=== PATIENT | female | born 1950 | race Caucasian/White ===

== ENCOUNTER 2020-08-26 09:13 | Inpatient (IN) | payer MEDICARE, SELFPAY ==
[2020-08-26] VITALS (11 sets, daily range): BP systolic 95–137; BP diastolic 37–74; PULSE 69–82; RESP 15–20; TEMP 36.1–36.6; O2SAT 93–100; BMI 24.3
--- NOTE | ~2020-08-26 | XR_ITS ---
EXAMINATION: XR chest 1V portable DATE: 08/26/2020 11:03 INDICATION: Cough. Disorientation. TECHNIQUE: A single frontal view of the chest was obtained on 2 radiographs. COMPARISON: CT abdomen and pelvis 08/26/2020 FINDINGS: There are faint patchy airspace opacities in all lung zones bilaterally. No pleural effusio n or pneumothorax. The heart size is normal. Median sternotomy wires and mediastinal surgical clips a re seen, likely from prior coronary artery bypass grafting. IMPRESSION: 1. Multifocal lung disease, likely atypical pneumonia such as COVID-19 pneumonia. Reviewed, dictated and finalized at location A. IMPRESSION: 1. Multifocal lung disease, likely atypical pneumonia such as COVID-19 pneumoni a.
--- NOTE | ~2020-08-26 | CT_ITS ---
EXAMINATION: CT abdomen pelvis wo con DATE: 08/26/2020 10:10 INDICATION: Abdominal pain. Diarrhea. TECHNIQUE: Computed tomography (CT) of the abdomen and pelvis was performed without intravenous contr ast. Automated exposure control and iterative reconstruction technique were employed. The dose-length product was 378.41 mGy-cm. COMPARISON: None. FINDINGS: The visualized portions of the lung bases demonstrate patchy peripheral ground glass opacit ies. There is mild atelectasis bilaterally. No pleural effusion. The heart size is normal. There are coronary artery calcifications. No pericardial effusion. The liver is normal. There are gallstones in the gallbladder, which is normal in size. Calcifications in the spleen are consistent with old granu lomatous disease. There is mild splenomegaly measuring 14.0 cm. The adrenal glands are normal. There are simple cysts and hemorrhagic cysts in the kidneys measuring up to 3.4 cm on the right. There are masses in the kidneys measuring soft tissue attenuation measuring up to 1.9 cm on the left. There are vascular calcifications at the jacob of the kidneys. There is no urolithiasis. There are fibroids in uterus. There is diverticulosis of the colon without evidence of diverticulitis. There are no dilated loops of bowel. The appendix is normal. There are no pathologically enlarged lymph nodes. There is n o free intraperitoneal fluid. There is moderate lumbar spondylosis. There is a hemangioma in T9 verte bral body. IMPRESSION: 1. Patchy groundglass opacities in the lungs suspicious for atypical pneumonia such as COVID-19 pneum onia. 2. Mild splenomegaly. 3. Cholelithiasis. 4. Indeterminate kidney masses measuring up to 1.9 cm on the left, which may be hemorrhagic cysts or less likely solid neoplasm(s). Abdomen CT without and with contrast is recommended. Reviewed, dictated and finalized at location A. IMPRESSION: 1. Patchy groundglass opacities in the lungs suspicious for atypical pneumonia such as COVID-19 pneumonia. 2. Mild splenomegaly. 3. Cholelithiasis. 4. Indeterminate kidney masses measuring up to 1.9 cm on the left, which may be hemorrhagic cysts or less likely solid neoplasm(s). Abdomen CT without and wit h contrast is recommended.
[2020-08-26 09:47] LABS: Basophils Percent Auto 0.2 % (0.2-1.2); Hematocrit 31.1 % (37.0-47.0); Hemoglobin 10.5 g/dL (12.0-15.0); Immature Granulocyte Absolute 0.02 K/mm3 (0.00-0.031); Immature Granulocyte Percent A 0.4 % (0-0.5); Lymphocytes Absolute Auto 1.63 K/mm3 (0.9-3.2); Lymphocytes Percent Auto 30.2 % (18.3-44.2); Mean Corpuscular HGB Conc 33.8 g/dl (32-36); Mean Corpuscular Hemoglobin 31.5 pg (26-34); Mean Corpuscular Volume 93.4 fl (80-100); Mean Platelet Volume 9.1 fl (7.4-10.4); Monocytes Absolute Auto 0.6 K/mm3 (0.1-0.6); Monocytes Percent Auto 11.3 % (2.6-8.5); Neutrophils Absolute Auto 3.1 K/mm3 (1.3-6.7); Neutrophils Percent Auto 57.9 % (45.5-73.1); Platelet Count Result 201 k/mm3 (150-375); Red Blood Count 3.33 M/mm3 (4.2-5.4); Red Cell Distribution Width 12.9 % (11.5-14.5); White Blood Count 5.4 K/mm3 (4.5-10.0)
[2020-08-26] MEDS: FAMOTIDINE 20 MG/2 ML VIAL IV PUSH (09:52)
[2020-08-26] MEDS: ONDANSETRON INJ 4 MG/2 ML VIAL IV PUSH (09:53)
[2020-08-26 09:59] LABS: Lactic Acid Reflex 2.6 mmol/L (0.7-2.1); Potassium 3.8 mmol/L (3.4-5.0)
[2020-08-26 10:05] LABS: Alanine Aminotransferase 26 U/L (4-35); Albumin Level 4.5 g/dL (3.5-5.1); Alkaline Phosphatase 88 U/L (38-126); Anion Gap 14 mmol/L (8-16); Aspartate Amino Transferase 43 U/L (14-36); Bilirubin,Total 0.6 mg/dL (0.2-1.3); Blood Urea Nitrogen 22 mg/dL (7-17); Calcium 8.8 mg/dL (8.4-10.2); Carbon Dioxide 34 mmol/L (22-30); Chloride 92 mmol/L (98-107); Estimated CRCL calculation 10 ml/min; Estimated Glomerular Filt Rate 10; Glucose 124 mg/dL (65-105); Lipase 289 U/L (23-300); Sodium 140 mmol/L (137-145)
--- NOTE | 2020-08-26 10:42 | PC.NURSE ---
Pt does not produce any urine. Singh states we do not have to get sample
--- NOTE | 2020-08-26 11:48 | ED.ABDPAIN ---
HPI - Abdominal Pain General Chief Complaint: Abdominal Pain Stated Complaint: altered mental status, abd pain Time Seen by Provider: 08/26/20 09:28 Source: patient and family Mode of arrival: EMS Limitations: no limitations History of Present Illness HPI narrative: Patient is a 70-year-old female who presents to emergency department for evaluation of abdominal pain with diarrhea for the last 5 days has also had a cough patient was at dialysis today completed her first 2 hours of her 3-hour treatment. Dialysis staff contacted her daughter to come because she is complaining of abdominal pain and seems slightly confused. Patient has had a cough and notes that she did have a recent hospitalization secondary to pneumonia. Patient is continued to have cough patient on arrival no she has also had loose stools for 5 days. Patient's daughter notes that she has also been more confused during this bout of illness that she is experiencing. Denies sick contacts. Patient does not take anything for her symptoms currently. On arrival patient in the bed in no distress noting that she is experiencing upper abdominal pains and is also having a cough. Related Data Allergies Allergy/AdvReac Type Severity Reaction Status Date / Time No Known Allergies Allergy Verified 08/26/20 09:45 Review of Systems Review of Systems: All systems reviewed & are unremarkable except as noted in HPI and below PMFSH Past Medical History Medical History (Updated 08/26/20 @ 13:26 by Bijan Isabel PA-C) Acute renal failure on dialysis Chronic kidney disease Social History Social History (Updated 08/26/20 @ 11:50 by Bijan Isabel PA-C) Smoking status: Never smoker Exam Narrative: Exam Narrative: GENERAL: Ill-appearing, well-nourished, and in no acute distress. HEAD: Normocephalic, atraumatic. EYES: PERRLA and EOMI. ENT: Nares clear, no rhinorrhea or epistaxis. Mucous membranes moist. Oropharynx without tonsillar hypertrophy exudate or other lesions. NECK: Supple. No adenopathy or masses. CHEST: Diminished on auscultation. No respiratory distress. Crackles in the lung bases HEART: Regular rate and rhythm. No murmur heard. Normal peripheral pulses. ABDOMEN: Soft, tenderness in the upper quadrants of the abdomen, nondistended, normal active bowel sounds. EXTREMITIES: Normal range of motion. No edema. SKIN: Warm, dry, no rash. NEURO: No focal deficits. Alert and oriented x3. PSYCH: Normal mood and affect. Course Course Emergency Course: Patient will be placed in hospital secondary to likely Covid 19 pneumonia with diarrhea as a possible symptom at this time given a 500 bolus will be placed in hospital for further evaluation Consultations Consultation #1: Hospitalist has accepted the patient primary care will follow the patient discussed case with hospitalist and patient's primary care Date: 08/26/20 Time: 13:24 Vital Signs Vital signs: Vital Signs Temperature 96.9 F L 08/26/20 09:20 Pulse Rate 82 08/26/20 09:20 Respiratory Rate 16 08/26/20 09:20 Blood Pressure 127/41 L 08/26/20 09:20 Pulse Oximetry 98 08/26/20 09:20 Temperature 96.9 F L 08/26/20 09:20 Pulse Rate 71 08/26/20 12:55 Respiratory Rate 18 08/26/20 12:55 Blood Pressure 95/74 L 08/26/20 12:55 Pulse Oximetry 99 08/26/20 12:55 MDM - Abdominal Pain MDM Narrative Medical decision making narrative: Patient with likely Covid pneumonia will be brought into the hospital to the hospitalist service patient has gone to 92% at times on room air patient has also had some diarrhea which could be a symptom of Covid as well patient in the room hemodynamically stable did have some soft pressures which required a 500 bolus with improvement of blood pressure patient agreed to come in the hospital. Discussion was made with patient's primary care is aware of the case. Lab Data Result diagrams: 08/26/20 09:39 08/26/20 09:39 Labs: Lab Res
[2020-08-26 12:45] LABS: Reflex Lactic Acid Yes or No Add Lactic
[2020-08-26] MEDS: SODIUM CHLORIDE 0.9% IV 500 ML 999 ML IV CONT (13:05)
[2020-08-26 14:15] LABS: Lactic Acid 0.9 mmol/L (0.7-2.1)
--- NOTE | 2020-08-26 15:07 | PC.NURSE ---
Pt admitted to room 4 from ED, pt awake and alert, no distress, VSS. Belongings with patient, oriented to ICU environment.
[2020-08-26 17:47] LABS: SARS-CoV-2 RNA PCR Positive
--- NOTE | 2020-08-26 20:00 | PM.IMHP ---
H&P: HPI History of Present Illness Date/Time: 08/26/20 20:00 Chief complaint: Pneumonia/dehydration/weakness Narrative: Wendi Hansen is a 70-year-old female with end-stage renal disease on hemodialysis, type 2 diabetes mellitus with peripheral neuropathy, hypertension, hyperlipidemia, and GERD who presented to the emergency department earlier this morning from dialysis for evaluation of abdominal pain, diarrhea, and reported confusion. She was at dialysis today, and approximately 2 hours into her treatment, she began complaining abdominal pain and she was then sent to the emergency department. Her pain is in the periumbilical region, and has been present for about 8 days. It seems to be a constant cramping pain, not severe enough for her to take analgesics. The pain does not radiate and she gives no significant aggravating or alleviating factors. She developed diarrhea on Sunday in that continued for approximately 24 to 36 hours before abating. Unfortunately she continues to have the abdominal discomfort, however. A CT of the abdomen and pelvis done on arrival to the emergency department showed no acute intra-abdominal findings however did note findings of atypical pneumonia suspicious for COVID-19. With further questioning she does mention having a nonproductive cough for the last couple of weeks and in fact she was recently hospitalized for pneumonia within the past month or so at [facility]. Aside from a mild cough she has not had any other symptoms and specifically denies fever, chills, sweats, sinus congestion, rhinorrhea, otalgia, or odynophagia, chest pain, and shortness of breath. She has not had recent travel and denies recent antibiotic use, sick contacts, and exposure to those positive for COVID-19. At the time my evaluation she feels just fine aside from the mild abdominal discomfort that remains. Review of Systems Review of Systems: Narrative: Twelve systems were reviewed with pertinent positives and negatives as per HPI. No fever, chills, or sweats. Daughter notes that she seemed to be a bit confused today however the patient is alert and oriented x4 at the time my evaluation. Appetite is unchanged. No vomiting. She has not had a bowel movement for about 2 days since her diarrhea cleared up on Sunday. She no longer urinates. She believes her diabetes is well controlled. She denies recent episodes of hypoglycemia. No blurry vision, polydipsia, or polyuria. Except as documented, all other systems were reviewed and are negative. [facility] Past Medical History Medical History (Updated 08/26/20 @ 23:26 by Alesia Durant PA-C) Coronary artery disease End-stage renal disease on hemodialysis Essential hypertension Gastroesophageal reflux disease Gout Type 2 diabetes mellitus with peripheral neuropathy Surgical History Surgical History (Updated 08/26/20 @ 23:26 by Alesia Durant PA-C) History of coronary artery bypass graft Family History Family History Father Diabetes mellitus Hypertension Mother Diabetes mellitus Hypertension Social History Social History (Updated 08/26/20 @ 23:27 by Alesia Durant PA-C) Social History: Surrogate decision maker: Grazyna Hansen, daughter. Code status: Full code. Smoking status: Never smoker Alcohol intake: never Substance use: never Substance use type: does not use Additional living arrangements comments: Lives alone in her own home in [place]. Additional occupation/education comments: Retired from [employer]. Spiritual care concerns: No Meds Home Medications and Allergies Home Medications Medication Instructions Recorded Confirmed Type B complex with C 20-folic acid 1 cap PO DAILY 08/26/20 08/26/20 History [Triphrocaps] allopurinol 100 mg PO DAILY 08/26/20 08/26/20 History atorvastatin 40 mg PO DAILY 08/26/20 08/26/20 History c
[2020-08-26] MEDS: allopurinoL 100 MG TABLET PO (20:55)
[2020-08-26] MEDS: carvediloL 6.25 MG TABLET PO (20:55)
[2020-08-26] MEDS: GABAPENTIN 100 MG CAPSULE PO (20:55)
[2020-08-26] MEDS: ATORVASTATIN 40 MG TABLET PO (20:55)
[2020-08-26] MEDS: VITAMIN B CMPLX/VIT C/FOLIC AC 1 CAPSULE 1 CAP PO (20:56)
[2020-08-26 22:33] LABS: Glucose Point of Care 106 (65-105)
[2020-08-27] VITALS (15 sets, daily range): BP systolic 108–121; BP diastolic 37–66; PULSE 65–83; RESP 14–20; TEMP 36.8–39.4; O2SAT 93–97
[2020-08-27] MEDS: REMDESIVIR 200 MG/NS 250 ML 200 MG/250 ML BAG 250 MG IVPB (01:27)
[2020-08-27 04:31] LABS: Basophils Percent Auto 0.7 % (0.2-1.2); Hematocrit 26.6 % (37.0-47.0); Hemoglobin 8.9 g/dL (12.0-15.0); Immature Granulocyte Absolute 0.01 K/mm3 (0.00-0.031); Immature Granulocyte Percent A 0.3 % (0-0.5); Lymphocytes Absolute Auto 1.03 K/mm3 (0.9-3.2); Lymphocytes Percent Auto 33.6 % (18.3-44.2); Mean Corpuscular HGB Conc 33.5 g/dl (32-36); Mean Corpuscular Hemoglobin 32.5 pg (26-34); Mean Corpuscular Volume 97.1 fl (80-100); Mean Platelet Volume 9.5 fl (7.4-10.4); Monocytes Absolute Auto 0.4 K/mm3 (0.1-0.6); Monocytes Percent Auto 11.4 % (2.6-8.5); Neutrophils Absolute Auto 1.7 K/mm3 (1.3-6.7); Platelet Count Result 177 k/mm3 (150-375); Red Blood Count 2.74 M/mm3 (4.2-5.4); Red Cell Distribution Width 13.1 % (11.5-14.5); White Blood Count 3.1 K/mm3 (4.5-10.0)
[2020-08-27 04:57] LABS: Lactic Acid Reflex 0.8 mmol/L (0.7-2.1)
[2020-08-27 05:23] LABS: Alanine Aminotransferase 19 U/L (4-35); Albumin Level 3.3 g/dL (3.5-5.1); Alkaline Phosphatase 68 U/L (38-126); Anion Gap 11 mmol/L (8-16); Aspartate Amino Transferase 34 U/L (14-36); Bilirubin,Total 0.5 mg/dL (0.2-1.3); Blood Urea Nitrogen 42 mg/dL (7-17); Calcium 7.6 mg/dL (8.4-10.2); Carbon Dioxide 30 mmol/L (22-30); Chloride 96 mmol/L (98-107); Estimated CRCL calculation 7 ml/min; Estimated Glomerular Filt Rate 7; Glucose 119 mg/dL (65-105); Lactate Dehydrogenase 575 U/L (313-618); Potassium 4.1 mmol/L (3.4-5.0); Sodium 137 mmol/L (137-145)
[2020-08-27 05:30] LABS: CRP 6.7 mg/dL (<1.0)
[2020-08-27] MEDS: SEVELAMER CARBONATE 800 MG TABLET PO ×3 (07:38→17:18)
[2020-08-27] MEDS: LOSARTAN POTASSIUM 25 MG TABLET PO (07:38)
[2020-08-27] MEDS: FAMOTIDINE 20 MG TABLET PO (07:38)
[2020-08-27] MEDS: glipiZIDE XL 5 MG TABCR PO (07:39)
[2020-08-27] MEDS: allopurinoL 100 MG TABLET PO (07:39)
[2020-08-27] MEDS: carvediloL 6.25 MG TABLET PO ×2 (07:39→21:27)
[2020-08-27] MEDS: GABAPENTIN 100 MG CAPSULE PO (07:40)
[2020-08-27] MEDS: VITAMIN B CMPLX/VIT C/FOLIC AC 1 CAPSULE 1 CAP PO (07:40)
[2020-08-27] MEDS: ATORVASTATIN 40 MG TABLET PO (07:40)
[2020-08-27 07:52] LABS: Glucose Point of Care 126 (65-105)
--- NOTE | 2020-08-27 07:56 | PM.IMPN ---
Progress Note: A&P Assessment and Plan (1) Diabetes: Code(s): E11.9 - Type 2 diabetes mellitus without complications Status: Chronic Assessment and Plan: Accuchecks ACHS ISS as needed (2) COVID-19 virus infection: Code(s): U07.1 - COVID-19 Status: Acute Assessment and Plan: Supportive care Continue to monitor Inflammatory markers Chest xr in am (3) End stage renal disease: Code(s): N18.6 - End stage renal disease Status: Chronic Assessment and Plan: Continue HD Appreciate Nephrology note. (4) Type 2 diabetes mellitus with peripheral neuropathy: Code(s): E11.42 - Type 2 diabetes mellitus with diabetic polyneuropathy Status: Acute Assessment and Plan: Continue to monitor (5) End-stage renal disease on hemodialysis: Code(s): N18.6 - End stage renal disease; Z99.2 - Dependence on renal dialysis Status: Acute Assessment and Plan: Stable Continue HD. (6) Mass of kidney of unknown nature: Code(s): N28.89 - Other specified disorders of kidney and ureter Status: Acute Assessment and Plan: Will follow up in the outpatient setting. (7) Anemia: Code(s): D64.9 - Anemia, unspecified Status: Acute Assessment and Plan: Anemia of chronic disease. (8) Gastroesophageal reflux disease: Code(s): K21.9 - Gastro-esophageal reflux disease without esophagitis Status: Acute Assessment and Plan: Continue home meds (9) Essential hypertension: Code(s): I10 - Essential (primary) hypertension Status: Acute Assessment and Plan: Continue home meds (10) Abdominal pain: Code(s): R10.9 - Unspecified abdominal pain Status: Acute Assessment and Plan: CT abd/pelv reviewed. Likely secondary to Covid 19 Subjective Date/time seen: 08/27/20 07:56 Abdominal pain while undergoing dialysis Review of Systems Review of Systems: Narrative: no fevers, no rigors, no chills. Constitutional: Comments: no fatigue. Eyes: Comments: no visual deficit. ENT: Comments: no ear ache, no nasal discharge, no throat pain. Cardiovascular: Comments: no chest pain, no leg swelling, no pnd, no orthopnea. Respiratory: Comments: no sob, no cough, no sputum production. Gastrointestinal: Comments: no n/v had abdominal pain. Musculoskeletal: Comments: no joint pain, no swelling. Integumentary/Breasts: Comments: no rashes. Neurologic: Comments: no sensory motor deficit. Hematologic/Lymphatic: Comments: no LAP Exam Narrative: Exam Narrative: Lying in bed. Const: General: cooperative, healthy appearing, comfortable, well developed, alert, awake and Physically active Nutritional Appearance: average body habitus HENMT: Head: normal to inspection and normocephalic Ears: hearing grossly normal bilaterally General nose exam: Normal external nose present Face and sinus: normal facial exam Eyes: General: appearance normal, both eyes and all related structures Pupils: Equal, round and reactive pupils present EOM: EOMs intact bilaterally Neck: Neck: normal visual inspection, no lymphadenopathy and no JVD Resp: Auscultation: clear to auscultation bilaterally Cardio: Jugular venous distension: no JVD Rate: regular rate Rhythm: regular rhythm GI: Inspection: normal to inspection GI Palp: Yes Soft to palpation and Yes No hepatosplenomegaly present Skin: General skin exam: normal color Lesions: no lesions Rashes: no rashes Wounds: no wounds Neuro: General: patient oriented x3 Cranial nerves: Yes CN's II-XII intact bilaterally and Yes Equal, round and reactive pupils present Speech: normal speech Motor exam (neuro): 5/5 motor strength present throughout Extrem: General: normal to inspection, full ROM and no pedal edema Objective Data Vital Signs Vital Signs: Vital Signs - 24 hr 08/26/20 09:20 08/26/20 09:46 08/26/20 10:01 Temperature 96.9 F L
[2020-08-27] MEDS: HEPARIN SODIUM 5,000 UNITS/ML VIAL 5000 UNITS SUB-Q ×2 (08:51→21:27)
[2020-08-27] MEDS: BENZONATATE 100 MG CAPSULE PO (08:58)
[2020-08-27 12:16] LABS: Glucose Point of Care 159 (65-105)
--- NOTE | 2020-08-27 15:44 | PM.CNNEP ---
Assessment and Plan Assessment and plan (1) End stage renal disease: Code(s): N18.6 - End stage renal disease Status: Chronic Assessment and Plan: HD tomorrow and continue her outpatient schedule of Sunday (DU) + //Sunday. follow electrolytes, volume status, and clearance (2) COVID-19 virus infection: Code(s): U07.1 - COVID-19 Status: Acute Assessment and Plan: positive testing on admission CXR and CT scan imaging noted on remdesivir start steroids(?) follow clinical symptoms and temperature curve (3) Abdominal pain: Code(s): R10.9 - Unspecified abdominal pain Status: Acute Assessment and Plan: etiology? related to COVID -19?? (4) Essential hypertension: Code(s): I10 - Essential (primary) hypertension Status: Acute Assessment and Plan: reasonable control follow trend of hemodynamics (5) Pneumonia: Code(s): J18.9 - Pneumonia, unspecified organism Status: Acute Assessment and Plan: likely secondary to COVID-19 continue current therapy follow respiratory status closely (6) Mass of kidney of unknown nature: Code(s): N28.89 - Other specified disorders of kidney and ureter Status: Acute Assessment and Plan: will need further imaging done once COVID-19 treated (7) Diabetes: Code(s): E11.9 - Type 2 diabetes mellitus without complications Status: Chronic Assessment and Plan: follow accuchecks on SSI Will continue to follow. History of Present Illness Reason for Consult Consult date: 08/27/20 Reason for consult: end stage renal disease Chief Complaint Chief complaint: Pneumonia/dehydration/weakness History of Present Illness Narrative: The patient is a 70-year-old female with a past medical history as noted below who presented to the [facility] ER yesterday from her dialysis unit for evaluation of abdominal pain. Yesterday, during her dialysis treatment, she started complaining of abdominal pain that began about 2 hours into her dialysis treatment. The patient was localized to the periumbilical region but reports that actually had been present for about the last week. She describes abdominal pain is a cramping but tolerable without the use of any type of pain medications. There is no radiation and there does not appear to be any type of specific aggravating or alleviating factors. She does report some diarrhea earlier this week but seemed to resolve on its own after about 24 hours. However, the abdominal pain has persisted and became significant enough that her dialysis treatment was terminated and she was sent to the emergency room for further evaluation. Workup and evaluation emergency room demonstrated the patient to be hemodynamically stable but with the aforementioned abdominal discomfort. Routine blood test demonstrated labs consistent with her known history of end-stage renal disease. She underwent a CT scan of the abdomen pelvis which demonstrated no acute intra-abdominal findings but the views of the lungs that were noted seem to be suspicious for atypical pneumonia that is seen with COVID-19 infection. She did report a nonproductive cough for a couple of weeks and was recently hospitalized for pneumonia at [facility] but does not report any specific exposures to any COVID-19 positive patient's/ people. She denies any fevers, chills, sweats, chest pain, shortness of breath, loss of taste, or sinus congestion. COVID-19 testing was done and she was subsequently admitted to the hospital for possible pneumonia (bacterial) and further evaluation. Since her admission, her COVID-19 testing is positive and she has been placed on isolation. Her antibiotics have been discontinued and she was started on remdesivir. Her respiratory status has been actually relatively stable but she has been spiking some fevers in the last 24 hour
[2020-08-27] MEDS: ACETAMINOPHEN 325 MG TABLET 650 MG PO (17:18)
[2020-08-27 18:40] LABS: Glucose Point of Care 98 (65-105)
[2020-08-27] MEDS: REMDESIVIR 100 MG/NS 250 ML 100 MG/250 ML BAG 250 MG IVPB (21:28)
[2020-08-27 22:26] LABS: Glucose Point of Care 122 (65-105)
[2020-08-28] VITALS (22 sets, daily range): BP systolic 104–139; BP diastolic 40–70; PULSE 56–86; RESP 14–18; TEMP 36.6–37.9; O2SAT 97–100
--- NOTE | 2020-08-28 07:43 | PM.IMPN ---
Progress Note: A&P Assessment and Plan (1) Diabetes: Code(s): E11.9 - Type 2 diabetes mellitus without complications Status: Chronic Assessment and Plan: Continue to monitor Carb consistent diet ISS as needed (2) COVID-19 virus infection: Code(s): U07.1 - COVID-19 Status: Acute Assessment and Plan: Stable Continue monitoring Daily chest xr (3) End stage renal disease: Code(s): N18.6 - End stage renal disease Status: Chronic Assessment and Plan: Continue HD. (4) Mass of kidney of unknown nature: Code(s): N28.89 - Other specified disorders of kidney and ureter Status: Acute Assessment and Plan: Follow up in the outpatient setting. (5) Anemia: Code(s): D64.9 - Anemia, unspecified Status: Acute Assessment and Plan: Anemia of chronic disease Deferred to Nephrology (6) Gastroesophageal reflux disease: Code(s): K21.9 - Gastro-esophageal reflux disease without esophagitis Status: Acute Assessment and Plan: Continue home meds (7) End-stage renal disease on hemodialysis: Code(s): N18.6 - End stage renal disease; Z99.2 - Dependence on renal dialysis Status: Acute Assessment and Plan: Continue HD Appreciate Nephrology note (8) Diarrhea: Code(s): R19.7 - Diarrhea, unspecified Status: Acute Assessment and Plan: Likely secondary to Covid 19 infection. Continue to monitor Supportive care. (9) Abdominal pain: Code(s): R10.9 - Unspecified abdominal pain Status: Acute Assessment and Plan: Likely secondary to Covid 19 infection Supportive care. (10) Pneumonia: Code(s): J18.9 - Pneumonia, unspecified organism Status: Acute Assessment and Plan: Compared to previous chest xr no new infiltrates. Subjective Date/time seen: 08/28/20 07:43 I have diarrhea. Review of Systems Review of Systems: Narrative: Presented to ED from dialysis due to abdominal pain Covid 19 positive. Constitutional: Comments: no fevers, no rigors, no chills. Eyes: Comments: no visual changes. ENT: Comments: no ear pain, no throat pain, no nasal discharge or congestion. Cardiovascular: Comments: no chest pain. no sob, Respiratory: Comments: no cough, no sputum production, no sob. Gastrointestinal: Gastrointestinal: Reports abdominal pain and Reports GI cramping Comments: watery diarrhea. Musculoskeletal: Comments: no joint pain or swelling. Neurologic: Comments: no sensory motor deficit. Hematologic/Lymphatic: Comments: no LAD Exam Narrative: Exam Narrative: Well appearing. Const: General: cooperative, healthy appearing, no acute distress, well developed, alert, awake and Physically active Nutritional Appearance: average body habitus HENMT: Head: normal to inspection and normocephalic Ears: hearing grossly normal bilaterally General nose exam: Normal external nose present Face and sinus: normal facial exam Mouth: Yes Normal oral and palatal mucosa present Eyes: General: appearance normal, both eyes and all related structures Pupils: Equal, round and reactive pupils present EOM: EOMs intact bilaterally Neck: Neck: full ROM, no lymphadenopathy and no JVD Resp: Auscultation: clear to auscultation bilaterally Cardio: Jugular venous distension: no JVD Rate: regular rate Rhythm: regular rhythm Heart sounds: S1 normal heart sound present and S2 normal heart sound present GI: Inspection: normal to inspection GI Palp: Yes Soft to palpation and Yes No hepatosplenomegaly present Auscultation: normal bowel sounds Skin: General skin exam: normal color Lesions: no lesions Rashes: no rashes Trauma: no lacerations or abrasions Wounds: no wounds Neuro: General: patient oriented x3 Cranial nerves: Yes CN's II-XII intact bilaterally and Yes Equal, round and reactive pupils present Cognition (Neuro): normal cognition Speech: normal speech Gait
[2020-08-28] MEDS: ATORVASTATIN 40 MG TABLET PO (08:33)
[2020-08-28] MEDS: carvediloL 6.25 MG TABLET PO ×2 (08:33→23:19)
[2020-08-28] MEDS: glipiZIDE XL 5 MG TABCR PO (08:33)
[2020-08-28] MEDS: ACETAMINOPHEN 325 MG TABLET 650 MG PO (08:33)
[2020-08-28] MEDS: VITAMIN B CMPLX/VIT C/FOLIC AC 1 CAPSULE 1 CAP PO (08:33)
[2020-08-28 08:34] LABS: Basophils Percent Auto 0.2 % (0.2-1.2); Hematocrit 24.6 % (37.0-47.0); Hemoglobin 8.4 g/dL (12.0-15.0); Immature Granulocyte Absolute 0.03 K/mm3 (0.00-0.031); Immature Granulocyte Percent A 0.5 % (0-0.5); Lymphocytes Absolute Auto 0.88 K/mm3 (0.9-3.2); Lymphocytes Percent Auto 14.4 % (18.3-44.2); Mean Corpuscular HGB Conc 34.1 g/dl (32-36); Mean Corpuscular Hemoglobin 31.6 pg (26-34); Mean Corpuscular Volume 92.5 fl (80-100); Mean Platelet Volume 9.4 fl (7.4-10.4); Monocytes Absolute Auto 0.5 K/mm3 (0.1-0.6); Monocytes Percent Auto 7.9 % (2.6-8.5); Neutrophils Absolute Auto 4.7 K/mm3 (1.3-6.7); Platelet Count Result 202 k/mm3 (150-375); Red Blood Count 2.66 M/mm3 (4.2-5.4); Red Cell Distribution Width 12.9 % (11.5-14.5); White Blood Count 6.1 K/mm3 (4.5-10.0)
[2020-08-28] MEDS: allopurinoL 100 MG TABLET PO (08:34)
[2020-08-28] MEDS: FAMOTIDINE 20 MG TABLET PO (08:34)
[2020-08-28] MEDS: GABAPENTIN 100 MG CAPSULE PO (08:34)
[2020-08-28] MEDS: LOSARTAN POTASSIUM 25 MG TABLET PO (08:34)
[2020-08-28] MEDS: HEPARIN SODIUM 5,000 UNITS/ML VIAL 5000 UNITS SUB-Q ×2 (08:34→23:19)
[2020-08-28] MEDS: SEVELAMER CARBONATE 800 MG TABLET PO ×3 (08:34→17:20)
[2020-08-28 08:51] LABS: Alanine Aminotransferase 16 U/L (4-35); Anion Gap 15 mmol/L (8-16); Blood Urea Nitrogen 62 mg/dL (7-17); CRP 7.8 mg/dL (<1.0); Calcium 7.6 mg/dL (8.4-10.2); Carbon Dioxide 27 mmol/L (22-30); Chloride 91 mmol/L (98-107); Creatine Kinase 41 U/L (30-135); Estimated CRCL calculation 5 ml/min; Estimated Glomerular Filt Rate 5; Glucose 67 mg/dL (65-105); Lactate Dehydrogenase 607 U/L (313-618); Sodium 133 mmol/L (137-145)
[2020-08-28 09:49] LABS: Hepatitis B Surface Antigen Negative (Negative)
[2020-08-28 09:55] LABS: HAV RESULT Negative (Negative); Hepatitis B Core IgM Result Negative (Negative)
[2020-08-28 10:10] LABS: Hepatitis B Surface Anti Res Positive; Hepatitis C Virus Antibody Negative (Negative)
[2020-08-28 11:02] LABS: Ferritin > 2000.00 ng/mL (11.1-264)
[2020-08-28 11:06] LABS: Glucose Point of Care 67 (65-105)
[2020-08-28 11:06] LABS: Glucose Point of Care 105 (65-105)
--- NOTE | 2020-08-28 11:21 | P.PNNP_ITS ---
Progress Note: A&P Assessment and Plan (1) End stage renal disease: Code(s): N18.6 - End stage renal disease Status: Chronic Assessment and Plan: * HD later today. * Volume status looks okay. (2) COVID-19 virus infection: Code(s): U07.1 - COVID-19 Status: Acute Assessment and Plan: * positive testing on admission * CXR and CT scan imaging noted * on remdesivir * Okay for Dexamethasone from the kidney standpoint if indicated. * follow clinical symptoms and temperature curve (3) Abdominal pain: Code(s): R10.9 - Unspecified abdominal pain Status: Acute Assessment and Plan: * etiology? * related to COVID -19?? * Belly better today. (4) Essential hypertension: Code(s): I10 - Essential (primary) hypertension Status: Acute Assessment and Plan: * reasonable control * follow trend of hemodynamics (5) Pneumonia: Code(s): J18.9 - Pneumonia, unspecified organism Status: Acute Assessment and Plan: * likely secondary to COVID-19 * continue current therapy * follow respiratory status closely (6) Mass of kidney of unknown nature: Code(s): N28.89 - Other specified disorders of kidney and ureter Status: Acute Assessment and Plan: * will need further imaging done once COVID-19 treated (7) Diabetes: Code(s): E11.9 - Type 2 diabetes mellitus without complications Status: Chronic Assessment and Plan: * follow accuchecks * on SSI Subjective Date/time seen: 08/28/20 11:21 Interval history: Patient is alert. She is feeling okay today. No cough or shortness of breath. Review of Systems Cardiovascular: Cardiovascular: Reports no additional cardiovascular complaints Respiratory: Respiratory: Reports no additional respiratory complaints Gastrointestinal: Gastrointestinal: Reports no additional gastrointestinal complaints Genitourinary: Genitourinary: Reports no additional female genitourinary complaints Exam Narrative: Exam Narrative: WDWN in NAD skin no rash head ncat lungs clear cor reg no rub abd BS+ nontender and soft ext no edema. Objective Data Vital Signs Vital Signs: Vital Signs - 24 hr 08/27/20 12:00 08/27/20 16:00 08/27/20 17:18 Temperature 36.9 C 39.4 C H 39.4 C H Pulse Rate 81 82 Respiratory Rate 20 18 Blood Pressure 109/66 110/46 L Pulse Oximetry 96 97 08/27/20 18:29 08/27/20 19:46 08/27/20 20:00 Temperature 38.8 C H 36.9 C Pulse Rate 72 Respiratory Rate 16 Blood Pressure 109/37 L Pulse Oximetry 93 97 08/27/20 21:27 08/27/20 21:30 08/28/20 00:00 Temperature 36.6 C Pulse Rate 65 72 72 Respiratory Rate 16 Blood Pressure 119/53 L Pulse Oximetry 97 08/28/20 04:00 08/28/20 08:30 08/28/20 08:33 Temperature 37.6 C 37.9 C H Pulse Rate 71 86 71 Respiratory Rate 16 16 Blood Pressure 116/44 L Pulse Oximetry 100 98 08/28/20 09:30 Temperature 36.8 C Pulse Rate Respiratory Rate Blood Pressure Pulse Oximetry Intake/Out
--- NOTE | 2020-08-28 11:21 | PM.PNNEP ---
Progress Note: A&P Assessment and Plan (1) End stage renal disease: Code(s): N18.6 - End stage renal disease Status: Chronic Assessment and Plan: HD later today. Volume status looks okay. (2) COVID-19 virus infection: Code(s): U07.1 - COVID-19 Status: Acute Assessment and Plan: positive testing on admission CXR and CT scan imaging noted on remdesivir Okay for Dexamethasone from the kidney standpoint if indicated. follow clinical symptoms and temperature curve (3) Abdominal pain: Code(s): R10.9 - Unspecified abdominal pain Status: Acute Assessment and Plan: etiology? related to COVID -19?? Belly better today. (4) Essential hypertension: Code(s): I10 - Essential (primary) hypertension Status: Acute Assessment and Plan: reasonable control follow trend of hemodynamics (5) Pneumonia: Code(s): J18.9 - Pneumonia, unspecified organism Status: Acute Assessment and Plan: likely secondary to COVID-19 continue current therapy follow respiratory status closely (6) Mass of kidney of unknown nature: Code(s): N28.89 - Other specified disorders of kidney and ureter Status: Acute Assessment and Plan: will need further imaging done once COVID-19 treated (7) Diabetes: Code(s): E11.9 - Type 2 diabetes mellitus without complications Status: Chronic Assessment and Plan: follow accuchecks on SSI Subjective Date/time seen: 08/28/20 11:21 Interval history: Patient is alert. She is feeling okay today. No cough or shortness of breath. Review of Systems Cardiovascular: Cardiovascular: Reports no additional cardiovascular complaints Respiratory: Respiratory: Reports no additional respiratory complaints Gastrointestinal: Gastrointestinal: Reports no additional gastrointestinal complaints Genitourinary: Genitourinary: Reports no additional female genitourinary complaints Exam Narrative: Exam Narrative: WDWN in NAD skin no rash head ncat lungs clear cor reg no rub abd BS+ nontender and soft ext no edema. Objective Data Vital Signs Vital Signs: Vital Signs - 24 hr 08/27/20 12:00 08/27/20 16:00 08/27/20 17:18 Temperature 36.9 C 39.4 C H 39.4 C H Pulse Rate 81 82 Respiratory Rate 20 18 Blood Pressure 109/66 110/46 L Pulse Oximetry 96 97 08/27/20 18:29 08/27/20 19:46 08/27/20 20:00 Temperature 38.8 C H 36.9 C Pulse Rate 72 Respiratory Rate 16 Blood Pressure 109/37 L Pulse Oximetry 93 97 08/27/20 21:27 08/27/20 21:30 08/28/20 00:00 Temperature 36.6 C Pulse Rate 65 72 72 Respiratory Rate 16 Blood Pressure 119/53 L Pulse Oximetry 97 08/28/20 04:00 08/28/20 08:30 08/28/20 08:33 Temperature 37.6 C 37.9 C H Pulse Rate 71 86 71 Respiratory Rate 16 16 Blood Pressure 116/44 L Pulse Oximetry 100 98 08/28/20 09:30 Temperature 36.8 C Pulse Rate Respiratory Rate Blood Pressure Pulse Oximetry Intake/Output Intake/Output: Intake & Output 08/25/20 08/26/20 08/27/20 08/28/20 23:59 23:59 23:59 23:59 Intake Total 700 1805 200 Output Total 0 Balance 700 1805 200 Meds/Results Medications: Active Medications Generic Name Dose Route Start Last Admin Trade Name Freq PRN Reason Stop Dose Admin Acetaminophen 650 mg 08/27/20 17:12 08/28/20 08:33 Acetaminophen 325 Mg Tablet PO 650 mg Q6H PRN Administration Mild Pain (1-3) or Fever Allopurinol 100 mg 08/27/20 09:00 08/28/20 08:34 Allopurinol 100 Mg Tablet PO 100 mg DAILY BILL Administration Atorvastatin Calcium 40 mg 08/27/20 09:00 08/28/20 08:33 Atorvastatin 40 Mg Tablet PO 40 mg DAILY BILL Administration Benzonatate 100 mg 08/27/20 08:17 08/27/20 08:58 Benzonatate 100 Mg Capsule PO 100 mg TID PRN Administration Cough Carvedilol 6.25 mg 08/27/20 09:00 08/28/20 08:33 Carvedilol 6
[2020-08-28 12:57] LABS: Glucose Point of Care 118 (65-105)
[2020-08-28 17:30] LABS: Glucose Point of Care 109 (65-105)
[2020-08-28] MEDS: ONDANSETRON INJ 4 MG/2 ML VIAL IV PUSH (23:20)
[2020-08-28 23:59] LABS: Glucose Point of Care 68 (65-105)
[2020-08-28 23:59] LABS: Glucose Point of Care 41 (65-105)
[2020-08-28 23:59] LABS: Glucose Point of Care 48 (65-105)
[2020-08-29] VITALS (10 sets, daily range): BP systolic 101–132; BP diastolic 42–51; PULSE 70–84; RESP 18; TEMP 36.6–37.5; O2SAT 94–100
[2020-08-29 03:19] LABS: Glucose Point of Care 148 (65-105)
[2020-08-29 06:26] LABS: Basophils Percent Auto 0.2 % (0.2-1.2); Hematocrit 23.4 % (37.0-47.0); Hemoglobin 7.8 g/dL (12.0-15.0); Immature Granulocyte Absolute 0.02 K/mm3 (0.00-0.031); Immature Granulocyte Percent A 0.5 % (0-0.5); Lymphocytes Absolute Auto 0.83 K/mm3 (0.9-3.2); Lymphocytes Percent Auto 20.2 % (18.3-44.2); Mean Corpuscular HGB Conc 33.3 g/dl (32-36); Mean Corpuscular Hemoglobin 31.6 pg (26-34); Mean Corpuscular Volume 94.7 fl (80-100); Mean Platelet Volume 9.6 fl (7.4-10.4); Monocytes Absolute Auto 0.4 K/mm3 (0.1-0.6); Monocytes Percent Auto 9.5 % (2.6-8.5); Neutrophils Absolute Auto 2.9 K/mm3 (1.3-6.7); Neutrophils Percent Auto 69.6 % (45.5-73.1); Platelet Count Result 193 k/mm3 (150-375); Red Blood Count 2.47 M/mm3 (4.2-5.4); Red Cell Distribution Width 12.7 % (11.5-14.5); White Blood Count 4.1 K/mm3 (4.5-10.0)
[2020-08-29 07:09] LABS: Alanine Aminotransferase 13 U/L (4-35)
[2020-08-29] MEDS: BENZONATATE 100 MG CAPSULE PO (08:46)
[2020-08-29] MEDS: ATORVASTATIN 40 MG TABLET PO (08:46)
[2020-08-29] MEDS: allopurinoL 100 MG TABLET PO (08:46)
[2020-08-29] MEDS: SEVELAMER CARBONATE 800 MG TABLET PO ×3 (08:46→17:18)
[2020-08-29] MEDS: FAMOTIDINE 20 MG TABLET PO (08:46)
[2020-08-29] MEDS: LOSARTAN POTASSIUM 25 MG TABLET PO (08:46)
[2020-08-29] MEDS: carvediloL 6.25 MG TABLET PO ×2 (08:46→20:23)
[2020-08-29] MEDS: GABAPENTIN 100 MG CAPSULE PO (08:46)
[2020-08-29] MEDS: VITAMIN B CMPLX/VIT C/FOLIC AC 1 CAPSULE 1 CAP PO (08:47)
[2020-08-29] MEDS: HEPARIN SODIUM 5,000 UNITS/ML VIAL 5000 UNITS SUB-Q ×2 (08:49→20:23)
[2020-08-29 08:57] LABS: Glucose Point of Care 50 (65-105)
[2020-08-29 11:06] LABS: Glucose Point of Care 151 (65-105)
[2020-08-29 11:06] LABS: Glucose Point of Care 55 (65-105)
--- NOTE | 2020-08-29 11:25 | P.PNNP_ITS ---
Progress Note: A&P Assessment and Plan (1) End stage renal disease: Code(s): N18.6 - End stage renal disease Status: Chronic Assessment and Plan: * HD Again on Sunday. (2) COVID-19 virus infection: Code(s): U07.1 - COVID-19 Status: Acute Assessment and Plan: * positive testing on admission * CXR and CT scan imaging noted * follow clinical symptoms and temperature curve * So far no symptoms. * There are COVID positive dialysis shifts at [facility] and [place] but if not there then in [place]. (3) Abdominal pain: Code(s): R10.9 - Unspecified abdominal pain Status: Acute Assessment and Plan: * etiology? * related to COVID -19?? * Belly better today. * eating and drinking well. (4) Essential hypertension: Code(s): I10 - Essential (primary) hypertension Status: Acute Assessment and Plan: * reasonable control * follow trend of hemodynamics (5) Pneumonia: Code(s): J18.9 - Pneumonia, unspecified organism Status: Acute Assessment and Plan: * likely secondary to COVID-19 * continue current therapy * follow respiratory status closely (6) Mass of kidney of unknown nature: Code(s): N28.89 - Other specified disorders of kidney and ureter Status: Acute Assessment and Plan: * will need further imaging done once COVID-19 treated (7) Diabetes: Code(s): E11.9 - Type 2 diabetes mellitus without complications Status: Chronic Assessment and Plan: * follow accuchecks * on SSI Subjective Date/time seen: 08/29/20 11:25 Interval history: Patient is alert. She is feeling okay today. No cough or shortness of breath. She developed nausea with her dialysis yesterday. She says this happens from time to time as an outpatient as well. She feels fine today and is eating and drinking okay. Review of Systems Cardiovascular: Cardiovascular: Reports no additional cardiovascular complaints Respiratory: Respiratory: Reports no additional respiratory complaints Gastrointestinal: Gastrointestinal: Reports no additional gastrointestinal complaints Genitourinary: Genitourinary: Reports no additional female genitourinary complaints Exam Narrative: Exam Narrative: WDWN in NAD skin no rash head ncat lungs clear cor reg no rub abd BS+ nontender and soft ext no edema. Objective Data Vital Signs Vital Signs: Vital Signs - 24 hr 08/28/20 12:00 08/28/20 16:00 08/28/20 19:50 Temperature 36.9 C 36.6 C 36.6 C Pulse Rate 71 64 73 Respiratory Rate 18 16 14 Blood Pressure 104/40 L 119/48 L 139/68 Pulse Oximetry 98 99 08/28/20 20:00 08/28/20 20:04 08/28/20 21:19 Temperature 36.7 C Pulse Rate 72 71 71 Respiratory Rate 18 Blood Pressure 127/64 120/60 121/58 L Pulse Oximetry 97 08/28/20 21:30 08/28/20 21:45 08/28/20 22:00 Temperature Pulse Rate 71 69 70 Respiratory Rate Blood Pressure 123/56 L 121/57 L 120/46 L Pulse Oximetry 08/28/20 22:15 08/28/20 22:30 08/28/20 22:47 Temperature Pulse Rate 56 L 78 70 Respiratory Rate Blood Pressure 117/5
--- NOTE | 2020-08-29 11:25 | PM.PNNEP ---
Progress Note: A&P Assessment and Plan (1) End stage renal disease: Code(s): N18.6 - End stage renal disease Status: Chronic Assessment and Plan: HD Again on Sunday. (2) COVID-19 virus infection: Code(s): U07.1 - COVID-19 Status: Acute Assessment and Plan: positive testing on admission CXR and CT scan imaging noted follow clinical symptoms and temperature curve So far no symptoms. There are COVID positive dialysis shifts at [facility] and [place] but if not there then in [place]. (3) Abdominal pain: Code(s): R10.9 - Unspecified abdominal pain Status: Acute Assessment and Plan: etiology? related to COVID -19?? Belly better today. eating and drinking well. (4) Essential hypertension: Code(s): I10 - Essential (primary) hypertension Status: Acute Assessment and Plan: reasonable control follow trend of hemodynamics (5) Pneumonia: Code(s): J18.9 - Pneumonia, unspecified organism Status: Acute Assessment and Plan: likely secondary to COVID-19 continue current therapy follow respiratory status closely (6) Mass of kidney of unknown nature: Code(s): N28.89 - Other specified disorders of kidney and ureter Status: Acute Assessment and Plan: will need further imaging done once COVID-19 treated (7) Diabetes: Code(s): E11.9 - Type 2 diabetes mellitus without complications Status: Chronic Assessment and Plan: follow accuchecks on SSI Subjective Date/time seen: 08/29/20 11:25 Interval history: Patient is alert. She is feeling okay today. No cough or shortness of breath. She developed nausea with her dialysis yesterday. She says this happens from time to time as an outpatient as well. She feels fine today and is eating and drinking okay. Review of Systems Cardiovascular: Cardiovascular: Reports no additional cardiovascular complaints Respiratory: Respiratory: Reports no additional respiratory complaints Gastrointestinal: Gastrointestinal: Reports no additional gastrointestinal complaints Genitourinary: Genitourinary: Reports no additional female genitourinary complaints Exam Narrative: Exam Narrative: WDWN in NAD skin no rash head ncat lungs clear cor reg no rub abd BS+ nontender and soft ext no edema. Objective Data Vital Signs Vital Signs: Vital Signs - 24 hr 08/28/20 12:00 08/28/20 16:00 08/28/20 19:50 Temperature 36.9 C 36.6 C 36.6 C Pulse Rate 71 64 73 Respiratory Rate 18 16 14 Blood Pressure 104/40 L 119/48 L 139/68 Pulse Oximetry 98 99 08/28/20 20:00 08/28/20 20:04 08/28/20 21:19 Temperature 36.7 C Pulse Rate 72 71 71 Respiratory Rate 18 Blood Pressure 127/64 120/60 121/58 L Pulse Oximetry 97 08/28/20 21:30 08/28/20 21:45 08/28/20 22:00 Temperature Pulse Rate 71 69 70 Respiratory Rate Blood Pressure 123/56 L 121/57 L 120/46 L Pulse Oximetry 08/28/20 22:15 08/28/20 22:30 08/28/20 22:47 Temperature Pulse Rate 56 L 78 70 Respiratory Rate Blood Pressure 117/51 L 123/56 L 110/49 L Pulse Oximetry 08/28/20 23:00 08/28/20 23:15 08/28/20 23:19 Temperature 36.9 C Pulse Rate 74 68 74 Respiratory Rate 18 Blood Pressure 127/70 127/70 Pulse Oximetry 08/29/20 00:00 08/29/20 04:00 08/29/20 08:00 Temperature 37.3 C 37.5 C 37.0 C Pulse Rate 84 75 70 Respiratory Rate 18 18 18 Blood Pressure 132/48 L 106/44 L 107/45 L Pulse Oximetry 97 98 98 08/29/20 08:45 08/29/20 08:46 Temperature Pulse Rate 70 76 Respiratory Rate 18 Blood Pressure Pulse Oximetry 98 Intake/Output Intake/Output: Intake & Output 08/26/20 08/27/20 08/28/20 08/29/20 23:59 23:59 23:59 23:59 Intake Total 700 1805 1350 470 Output Total 0 1670 Balance 700 1805 -320 470 Meds/Results Medications: Active Medications Generic Name Dose Route Start Last Admin Tr
--- NOTE | 2020-08-29 11:45 | PM.IMPN ---
Progress Note: A&P Assessment and Plan (1) COVID-19 virus infection: Code(s): U07.1 - COVID-19 Status: Acute Assessment and Plan: ------Pt has a mild cough and many GI symptoms and tested positive for COVID-19. We were able to wean her off o2 this afternoon and so far she is doing well. If she tolerates room air overnight, likely discharge home tomorrow. No indication for Remdesivir or Decadron right now (2) Diarrhea: Code(s): R19.7 - Diarrhea, unspecified Status: Acute Assessment and Plan: -----Likely secondary to Covid [address] negative for GI abnormalities. Continue supportive care. (3) End stage renal disease: Code(s): N18.6 - End stage renal disease Status: Chronic Assessment and Plan: -----Continue HD. She usually goes sunday, sunday, , sunday. Plan for HD tomorrow then discharge (4) Diabetes: Code(s): E11.9 - Type 2 diabetes mellitus without complications Status: Chronic Assessment and Plan: -----Pt has been running low here and states her appetite has been normal. I am going to hold her oral medications right now and monitor her glucose levels. Last A1c 6.0. (5) Mass of kidney of unknown nature: Code(s): N28.89 - Other specified disorders of kidney and ureter Status: Acute Assessment and Plan: -----Follow up with urology outpatient. (6) Anemia: Code(s): D64.9 - Anemia, unspecified Status: Acute Assessment and Plan: -----Anemia of chronic disease likely d/t ESRD (7) Gastroesophageal reflux disease: Code(s): K21.9 - Gastro-esophageal reflux disease without esophagitis Status: Acute Assessment and Plan: -----Continue pepcid (8) End-stage renal disease on hemodialysis: Code(s): N18.6 - End stage renal disease; Z99.2 - Dependence on renal dialysis Status: Acute Assessment and Plan: ----Continue HD and await recommendations from nephrology. (9) Abdominal pain: Code(s): R10.9 - Unspecified abdominal pain Status: Acute Assessment and Plan: ------Likely secondary to Covid 19 infection Supportive care. (10) Pneumonia: Code(s): J18.9 - Pneumonia, unspecified organism Status: Acute Assessment and Plan: 2/2 to COVID-19. See above Time Spent With Patient Time with patient: 25 - 35 minutes Subjective Date/time seen: 08/29/20 11:45 Interval history: Pt is a 70 y/o female here for n/v/d found to have covid. Pt states her diarrhea has improved but she continues to have diarrhea. Her cough is getting better and mild. No SOB at rest and with walking. No CP, fevers, or leg swelling. Daughter concerned about sending the patient in too quickly as she lives at home alone. Review of Systems Review of Systems: All systems reviewed & are unremarkable except as noted in HPI and below Exam Narrative: Exam Narrative: General: Well developed well nourished patient in NAD HEENT: normocephalic Neck: supple Neuro: Alert and oriented x4 CV:RRR with slight murmur correlating with fistula Resp:CTA but done with a disposable stethoscope which lowers sensitivity Abd: Soft, non distended. Pain to palpation to the lower quadrants. Positive bowel sounds Extremities: No swelling, erythema, or pain to palpation. Objective Data Vital Signs Vital Signs: Vital Signs - 24 hr 08/28/20 12:00 08/28/20 16:00 08/28/20 19:50 Temperature 98.5 F 97.8 F 97.8 F Pulse Rate 71 64 73 Respiratory Rate 18 16 14 Blood Pressure 104/40 L 119/48 L 139/68 Pulse Oximetry 98 99 08/28/20 20:00 08/28/20 20:04 08/28/20 21:19 Temperature 98.1 F Pulse Rate 72 71 71 Respiratory Rate 18 Blood Pressure 127/64 120/60 121/58 L Pulse Oximetry 97 08/28/20 21:30 08/28/20 21:45 08/28/20 22:00 Temperature Pulse Rate 71 69 70 Respiratory Rate Blood Pressure 123/56 L
[2020-08-29 12:44] LABS: Glucose Point of Care 195 (65-105)
[2020-08-29 17:45] LABS: Glucose Point of Care 151 (65-105)
[2020-08-29 22:34] LABS: Glucose Point of Care 203 (65-105)
[2020-08-30] VITALS (8 sets, daily range): BP systolic 102–117; BP diastolic 37–44; PULSE 71–79; RESP 16–18; TEMP 37.1–37.9; O2SAT 93–97
[2020-08-30 06:36] LABS: Basophils Percent Auto 0.3 % (0.2-1.2); Eosinophils Percent Auto 0.2 % (0-4.4); Hematocrit 24.2 % (37.0-47.0); Hemoglobin 8.1 g/dL (12.0-15.0); Immature Granulocyte Absolute 0.03 K/mm3 (0.00-0.031); Immature Granulocyte Percent A 0.5 % (0-0.5); Lymphocytes Absolute Auto 0.93 K/mm3 (0.9-3.2); Lymphocytes Percent Auto 15.4 % (18.3-44.2); Mean Corpuscular HGB Conc 33.5 g/dl (32-36); Mean Corpuscular Hemoglobin 31.9 pg (26-34); Mean Corpuscular Volume 95.3 fl (80-100); Mean Platelet Volume 9.1 fl (7.4-10.4); Monocytes Absolute Auto 0.4 K/mm3 (0.1-0.6); Monocytes Percent Auto 7.1 % (2.6-8.5); Neutrophils Absolute Auto 4.6 K/mm3 (1.3-6.7); Neutrophils Percent Auto 76.5 % (45.5-73.1); Platelet Count Result 202 k/mm3 (150-375); Red Blood Count 2.54 M/mm3 (4.2-5.4); Red Cell Distribution Width 12.9 % (11.5-14.5)
[2020-08-30 06:49] LABS: Alanine Aminotransferase 12 U/L (4-35); Anion Gap 11 mmol/L (8-16); Blood Urea Nitrogen 56 mg/dL (7-17); Calcium 7.5 mg/dL (8.4-10.2); Carbon Dioxide 27 mmol/L (22-30); Chloride 96 mmol/L (98-107); Estimated CRCL calculation 6 ml/min; Estimated Glomerular Filt Rate 5; Glucose 84 mg/dL (65-105); Phosphorus 3.8 mg/dL (2.5-4.5); Potassium 4.6 mmol/L (3.4-5.0); Sodium 134 mmol/L (137-145)
[2020-08-30] MEDS: VITAMIN B CMPLX/VIT C/FOLIC AC 1 CAPSULE 1 CAP PO (08:43)
[2020-08-30] MEDS: SEVELAMER CARBONATE 800 MG TABLET PO ×2 (08:43→13:01)
--- NOTE | 2020-08-30 08:44 | PM.DS ---
DS: Admitting Diagnosis Admitting Diagnosis Admitting Diagnosis: Pneumonia/dehydration/weakness DS: Discharge Diagnosis Discharge Diagnosis (1) COVID-19 virus infection: Code(s): U07.1 - COVID-19 Status: Acute Assessment and Plan: ------Pt has a mild cough and many GI symptoms and tested positive for COVID-19. We were able to wean her off o2 in the hospital. She was educated to come back to emergency room if she felt more short of breath (2) Diarrhea: Code(s): R19.7 - Diarrhea, unspecified Status: Acute Assessment and Plan: -----resolved. Likely secondary to Covid [address] negative for GI abnormalities. Continue supportive care. (3) End stage renal disease: Code(s): N18.6 - End stage renal disease Status: Chronic Assessment and Plan: -----Continue HD. She usually goes sunday, sunday, , sunday. No dialysis needed today per Dr. Rinaldi. She is to start dialysis tomorrow at the new location while she is COVID-19 positive (4) Diabetes: Code(s): E11.9 - Type 2 diabetes mellitus without complications Status: Chronic Assessment and Plan: -----she has run a little low here but states at home she usually runs in the 110s. She was educated about the hypoglycemia symptoms and to hold her medication if she is unable to eat. She agrees (5) Mass of kidney of unknown nature: Code(s): N28.89 - Other specified disorders of kidney and ureter Status: Acute Assessment and Plan: -----Follow up with urology outpatient. (6) Anemia: Code(s): D64.9 - Anemia, unspecified Status: Acute Assessment and Plan: -----Anemia of chronic disease likely d/t ESRD (7) Gastroesophageal reflux disease: Code(s): K21.9 - Gastro-esophageal reflux disease without esophagitis Status: Acute Assessment and Plan: -----Continue pepcid (8) End-stage renal disease on hemodialysis: Code(s): N18.6 - End stage renal disease; Z99.2 - Dependence on renal dialysis Status: Acute Assessment and Plan: ----continue new dialysis schedule Sunday, , Sunday (9) Abdominal pain: Code(s): R10.9 - Unspecified abdominal pain Status: Acute Assessment and Plan: ------Likely secondary to Covid 19 infection Supportive care. (10) Pneumonia: Code(s): J18.9 - Pneumonia, unspecified organism Status: Acute Assessment and Plan: 12/14 to COVID-19. See above DS: Summary Hospital Course Reason for hospitalization: diarrhea/covid Hospital Course: Patient is a 70-year-old female who presented emergency room for abdominal pain and diarrhea with cough found to have COVID-19. She was admitted to the hospitalist service and quickly was able to be weaned off oxygen. Her diarrhea improved during her hospital stay. Please see above for further details. The patient was educated about the worrisome signs and symptoms to come back to emergency room for and was discharged in stable condition. It was discussed that she needs to follow-up with a urologist and her dialysis schedule has changed. Status at Discharge Functional status at discharge: independent ambulation Overall status at discharge: patient is back to baseline Time Spent with Patient Time attestation: Total time spent providing and/or coordinating discharge services:36 min Time spent: Greater than 30 minutes Exam Narrative: Exam Narrative: General: Well developed well nourished patient in NAD HEENT: normocephalic Neck: supple Neuro: Alert and oriented x4 CV:RRR with slight murmur correlating with fistula Resp:CTA but done with a disposable stethoscope which lowers sensitivity Abd: Soft, non distended. Pain to palpation to the lower quadrants. Positive bowel sounds Extremities: No swelling, erythema, or pain to palpation. DS: Data Data Completed and P[place]in
[2020-08-30] MEDS: allopurinoL 100 MG TABLET PO (08:48)
[2020-08-30] MEDS: carvediloL 6.25 MG TABLET PO (08:48)
[2020-08-30] MEDS: GABAPENTIN 100 MG CAPSULE PO (08:49)
[2020-08-30] MEDS: LOSARTAN POTASSIUM 25 MG TABLET PO (08:49)
[2020-08-30] MEDS: ATORVASTATIN 40 MG TABLET PO (08:49)
[2020-08-30] MEDS: FAMOTIDINE 20 MG TABLET PO (08:49)
[2020-08-30] MEDS: HEPARIN SODIUM 5,000 UNITS/ML VIAL 5000 UNITS SUB-Q (11:32)
[2020-08-30 12:55] LABS: Glucose Point of Care 94 (65-105)
[2020-08-30] MEDS: ACETAMINOPHEN 325 MG TABLET 650 MG PO (12:59)
[2020-08-30 14:38] LABS: Glucose Point of Care 161 (65-105)
[2020-08-31 17:53] LABS: Procalcitonin 1.36 ng/mL (<0.10)
--- NOTE | 2020-09-02 08:08 | PC.NURSE ---
Blood cx are negative.
== END 2020-08-30 15:45 | disposition home or self-care (01) | DRG 177 ==
LOC: ANHED 13:26 → ANHICU 14:25 → ANH3MEDSUR 08-27 17:39 → ANHICU 09-01 14:42
PROVIDERS: Emergency Medicine Emergency Medical Services; Internal Medicine; Internal Medicine Nephrology; Physician Assistant; Admitting Provider Family Medicine; Emergency Provider Emergency Medicine; PCP Internal Medicine; Visit Provider Physician Assistant
DX: U07.1 COVID-19 (principal); N18.6 End stage renal disease; J12.89 Other viral pneumonia; I12.0 Hypertensive chronic kidney disease with stage 5 chronic kidney disease or end stage renal disease; Z99.2 Dependence on renal dialysis; K21.9 Gastro-esophageal reflux disease without esophagitis; D63.1 Anemia in chronic kidney disease; N28.89 Other specified disorders of kidney and ureter; E78.5 Hyperlipidemia, unspecified; E11.22 Type 2 diabetes mellitus with diabetic chronic kidney disease; E86.0 Dehydration; R19.7 Diarrhea, unspecified; M10.9 Gout, unspecified; I25.10 Atherosclerotic heart disease of native coronary artery without angina pectoris; E11.42 Type 2 diabetes mellitus with diabetic polyneuropathy; Z95.1 Presence of aortocoronary bypass graft
CPT/HCPCS: 36415; 71045; 74176; 80048; 80053; 80069; 80074; 80076; 82550; 82728; 83036; 83605; 83615; 83690; 84145; 84460; 85025; 86140; 86706; 87040; 87635; 96361; 96365; 96366; 96367; 96372; 96375; 99285; A9270; C9803; G0257; G0378; J0131; J1644; J2405; J7030; J7040; U0003

== ENCOUNTER 2022-11-30 13:20 | Emergency (ER) | payer MEDICARE, SELFPAY ==
[2022-11-30] VITALS (7 sets, daily range): BP systolic 160–196; BP diastolic 67–81; PULSE 75–86; RESP 13–18; TEMP 36.7; O2SAT 93–97
--- NOTE | ~2022-11-30 | XR_ITS ---
Clinical Indication: Chest pain PA and lateral views of the chest: Comparison: 08/26/2020 Findings: The lungs are clear, without evidence of focal consolidation or pleural effusion. Cardiome diastinal silhouette is stable, status post median sternotomy. Bones and soft tissues are unremarkabl e. Impression: Clear lungs. Reviewed, dictated and finalized at location . MANAGEMENT ASSOCIATE Impression: Clear lungs.
--- NOTE | 2022-11-30 13:26 | ECG_ITS ---
Measurements Intervals [place] Rate: 80 P: 60 KS: 156 QRS: 43 QRSD: 102 T: 78 QT: 401 QTc: 465 Interpretive Statements SINUS RHYTHM LEFT ATRIAL ENLARGEMENT BORDERLINE ST-T WAVE ABNORMALITY- HIGH LATERAL LEADS BASELINE ARTIFACT- I, II, III, AVR, AVL BORDERLINE ECG NO PREVIOUS ECG AVAILABLE FOR COMPARISON Electronically Signed On 11-30-2022 14:40:58 [employer] by Alan Rider D.O.
[2022-11-30 13:57] LABS: Basophils Absolute Auto 0.1 K/mm3 (0.0-0.1); Basophils Percent Auto 1.1 % (0.2-1.2); Eosinophils Absolute Auto 0.1 K/mm3 (0-0.3); Eosinophils Percent Auto 1.8 % (0-4.4); Hematocrit 32.2 % (37.0-47.0); Hemoglobin 10.4 g/dL (12.0-15.0); Immature Granulocyte Absolute 0.01 K/mm3 (0.00-0.031); Immature Granulocyte Percent A 0.2 % (0-0.5); Lymphocytes Absolute Auto 1.06 K/mm3 (0.9-3.2); Lymphocytes Percent Auto 23.7 % (18.3-44.2); Mean Corpuscular HGB Conc 32.3 g/dl (32-36); Mean Corpuscular Hemoglobin 30.6 pg (26-34); Mean Corpuscular Volume 94.7 fl (80-100); Mean Platelet Volume 8.6 fl (7.4-10.4); Monocytes Absolute Auto 0.6 K/mm3 (0.1-0.6); Monocytes Percent Auto 12.3 % (2.6-8.5); Neutrophils Absolute Auto 2.7 K/mm3 (1.3-6.7); Neutrophils Percent Auto 60.9 % (45.5-73.1); Platelet Count Result 195 k/mm3 (150-375); Red Cell Distribution Width 14.5 % (11.5-14.5); White Blood Count 4.5 K/mm3 (4.5-10.0)
[2022-11-30 14:09] LABS: INR 1.2; Partial Thromboplastin Time 33.5 SECONDS (22.3-36.8); Prothrombin Time 14.4 Seconds (11.1-14.7)
[2022-11-30 14:26] LABS: Alanine Aminotransferase 13 U/L (6-35); Albumin Level 4.3 g/dL (3.5-5.1); Alkaline Phosphatase 92 U/L (38-126); Aspartate Amino Transferase 21 U/L (14-36); Bilirubin,Total 0.5 mg/dL (0.2-1.3); Blood Urea Nitrogen 23 mg/dL (7-17); Calcium 9.7 mg/dL (8.4-10.2); Carbon Dioxide > 40 mmol/L (22-30); Chloride 93 mmol/L (98-107); Estimated Glomerular Filt Rate 11; Glucose 96 mg/dL (65-110); Lipase 45 U/L (23-300); Potassium 3.6 mmol/L (3.4-5.0); Sodium 141 mmol/L (137-145)
[2022-11-30 14:36] LABS: Troponin I 0.013 ng/mL (0.000-0.034)
[2022-11-30] MEDS: ACETAMINOPHEN 500 MG TABLET 1000 MG PO (15:52)
--- NOTE | 2022-11-30 16:45 | ED.CHESTPAIN ---
HPI - Chest Pain General Chief Complaint: Chest Pain Stated Complaint: CP, HTN Time Seen by Provider: 11/30/22 15:26 History of Present Illness HPI narrative: Patient states that she was at dialysis earlier when she suddenly had high blood pressure, tachycardia, and severe chest pain, she states that she has also been dealing with a headache for the last 2 days. she was able to finish dialysis. EMS did give her a dose of nitroglycerin and aspirin, by the time she arrived, she states that her chest pain had resolved, she does have some discomfort in her middle back, no focal numbness or weakness, she does still also have a headache. Related Data Home Medications Medication Instructions Recorded Confirmed allopurinol 100 mg tablet 100 mg PO DAILY 08/26/20 12/13/21 atorvastatin 40 mg tablet 40 mg PO DAILY 08/26/20 12/13/21 carvedilol 6.25 mg tablet 6.25 mg PO BID 08/26/20 12/13/21 famotidine 20 mg tablet 20 mg PO DAILY 08/26/20 12/13/21 gabapentin 100 mg capsule 100 mg PO DAILY 08/26/20 12/13/21 glipizide 5 mg tablet, extended 5 mg PO DAILY 08/26/20 12/13/21 release 24 hr losartan 50 mg tablet 25 mg PO DAILY 08/26/20 12/13/21 sevelamer carbonate 800 mg tablet 800 mg PO TIDWM 08/26/20 12/13/21 clopidogrel 75 mg tablet (Plavix) 75 mg PO DAILY 12/13/21 12/13/21 Allergies Allergy/AdvReac Type Severity Reaction Status Date / Time No Known Allergies Allergy Verified 12/13/21 15:31 Review of Systems Review of Systems: CONST: No fever. HEENT: No sore throat C/V: Chest pain now resolved RESP: Mild shortness of breath now resolved GI: Mild nausea now resolved : No dysuria. M/S: Back pain SKIN: No rash. NEURO: [No headache or focal numbness or weakness] PSYCH: [No depression] [facility] Past Medical History Medical History Coronary artery disease End-stage renal disease on hemodialysis Essential hypertension Gastroesophageal reflux disease Gout Type 2 diabetes mellitus with peripheral neuropathy Surgical History Surgical History History of coronary artery bypass graft Family History Family History Father Diabetes mellitus Hypertension Heart disease Colon cancer Mother Diabetes mellitus Hypertension Colon cancer Social History Social History Social History: Surrogate decision maker: Grazyna Hansen, daughter. Code status: Full code. Smoking status: Never smoker Alcohol intake: never Substance use: never Substance use type: does not use Additional living arrangements comments: Lives alone in her own home in [place]. Additional occupation/education comments: Retired from [employer]. Spiritual care concerns: No Exam Narrative: EXAMINATION OF ORGAN SYSTEMS/BODY AREAS: Constitutional: Vital signs per nursing GENERAL:[No acute distress, non-toxic appearing.] Resting comfortably in bed. HEAD: Normal with no signs of head trauma. EYES: EOMI, conjunctiva normal ENT: Hearing grossly intact LUNGS: Nonlabored breathing. HEART: [Regular rate and rhythm]. Normal peripheral pulses. ABD: [Soft], [nontender to palpation] BACK: Tenderness to palpation across middle back EXT: Normal range of motion SKIN: [No rashes or lesions.] NEURO: [Alert and oriented x 3. No gross focal sensory or strength deficits.] PSYCH: Normal affect Course Vital Signs Vital signs: Vital Signs Temperature 98.0 F 11/30/22 13:24 Pulse Rate 81 11/30/22 13:24 Respiratory Rate 14 11/30/22 13:24 Blood Pressure 160/75 H 11/30/22 13:24 Pulse Oximetry 93 11/30/22 13:24 Oxygen Delivery Room Air 11/30/22 13:24 Temperature 98.0 F 11/30/22 13:24 Pulse Rate 80 11/30/22 16:31 Respiratory Rate 14 11/30/22 16:31 Blood Pressure 181/67 H 11/30/22 16:31 Pulse Oximetry 97 11/30/22 16:16
[2022-11-30] MEDS: METOCLOPRAMIDE HCL INJ 10 MG/2 ML VIAL 5 MG IV PUSH (17:15)
[2022-11-30] MEDS: LIDOCAINE 5% PATCH 1 PATCH TRANSDERM (17:15)
[2022-11-30 17:21] LABS: Troponin I 0.016 ng/mL (0.000-0.034)
== END 2022-11-30 18:35 | disposition home or self-care (01) ==
PROVIDERS: Emergency Provider Emergency Medicine; PCP Internal Medicine
DX: I12.0 Hypertensive chronic kidney disease with stage 5 chronic kidney disease or end stage renal disease (principal); R07.9 Chest pain, unspecified; R51.9 Headache, unspecified; M54.6 Pain in thoracic spine; E11.22 Type 2 diabetes mellitus with diabetic chronic kidney disease; N18.6 End stage renal disease; E11.42 Type 2 diabetes mellitus with diabetic polyneuropathy; Z99.2 Dependence on renal dialysis; I25.10 Atherosclerotic heart disease of native coronary artery without angina pectoris; K21.9 Gastro-esophageal reflux disease without esophagitis; M10.9 Gout, unspecified; Z95.1 Presence of aortocoronary bypass graft; Z79.84 Long term (current) use of oral hypoglycemic drugs; R94.31 Abnormal electrocardiogram [ECG] [EKG]
CPT/HCPCS: 36415; 71046; 80053; 83690; 84484; 85025; 85610; 85730; 93005; 96374; 99284; A9270; J2765

== ENCOUNTER 2024-02-21 16:07 | Emergency (ER) | payer MEDICARE, SELFPAY ==
--- NOTE | ~2024-02-21 | CT_ITS ---
EXAMINATION: CTA chest abdomen pelvis DATE: 02/21/2024 21:12 CDT INDICATION: Abdominal pain. Hypotension. TECHNIQUE: Computed tomographic angiography (CTA) of the chest, abdomen, and pelvis was performed wit hout and with 100 mL Omnipaque-350 intravenous contrast. The dose-length product was 571.72 mGy-cm. M aximum intensity projection 3D-reconstructions of the aorta and other arteries were constructed by columba marcos technologist on a separate workstation. COMPARISON: None. FINDINGS: CHEST CTA: Status post median sternotomy for CABG. There is extensive atherosclerosis of the aorta and coronary arteries. Cardiomegaly. No significant pleural or pericardial effusion. Mild mediastinal lymphadenopa thy. There is emphysema. No endobronchial lesions. No focal airspace consolidation. No evidence for p ulmonary embolism. ABDOMEN AND PELVIS CTA: Gallstones. Gallbladder is distended. Hepatomegaly. The spleen, pancreas, adrenal glands are unremark able. There are multiple masses of the kidneys which are atrophic. There is a solid 4 cm left renal m ass, suspicious for renal cell carcinoma. Recommend correlation with MRI of the abdomen without and w ith contrast. Nonobstructive bowel gas pattern. Colonic diverticulosis without evidence for diverticu litis. There are calcified masses of the uterus, consistent with fibroids. No lymphadenopathy. There is a hemangioma of T9. Moderate thoracic and lumbar spondylosis. IMPRESSION: 1. Solid 4 cm left renal mass, suspicious for renal cell carcinoma until proven otherwise. Recommend correlation with MRI abdomen without and with contrast. Innumerable additional bilateral renal masses would be better evaluated with MRI. 2: Cholelithiasis. Moderate gallbladder distention. 3: Mediastinal lymphadenopathy likely reactive. 4: Cardiomegaly. Reviewed, dictated and finalized at location A. IMPRESSION: 1. Solid 4 cm left renal mass, suspicious for renal cell carcinoma until proven otherwise. Recommend correlation with MRI abdomen without and with contrast. I nnumerable additional bilateral renal masses would be better evaluated with MRI . 2: Cholelithiasis. Moderate gallbladder distention. 3: Mediastinal lymphadenopathy likely reactive. 4: Cardiomegaly.
[2024-02-21 16:38] VITALS: BP 118/70; PULSE 94; RESP 16; TEMP 37.3; O2SAT 94
--- NOTE | 2024-02-21 17:42 | ECG_ITS ---
SEE SCANNED COPY FOR CONFIRMED REPORT MTDD
[2024-02-21] MEDS: MAG HYDROX/AL HYDROX/SIMETH 30 ML UDC PO (19:59)
[2024-02-21] MEDS: FAMOTIDINE 20 MG/2 ML VIAL IV PUSH (19:59)
[2024-02-21 20:01] VITALS: BP 137/64; PULSE 81; RESP 13; TEMP 37.2; O2SAT 98
[2024-02-21 20:03] VITALS: BP 126/53; PULSE 79; RESP 13; O2SAT 98
[2024-02-21 20:05] LABS: Basophils Percent Auto 0.5 % (0.2-1.2); Eosinophils Percent Auto 0.1 % (0-4.4); Immature Granulocyte Absolute 0.03 K/mm3 (0.00-0.031); Immature Granulocyte Percent A 0.4 % (0-0.5); Lymphocytes Absolute Auto 0.89 K/mm3 (0.9-3.2); Lymphocytes Percent Auto 11.5 % (18.3-44.2); Mean Corpuscular HGB Conc 32.4 g/dl (32-36); Mean Corpuscular Hemoglobin 29.1 pg (26-34); Mean Corpuscular Volume 89.9 fl (80-100); Mean Platelet Volume 8.6 fl (7.4-10.4); Monocytes Absolute Auto 0.8 K/mm3 (0.1-0.6); Monocytes Percent Auto 10.3 % (2.6-8.5); Neutrophils Percent Auto 77.2 % (45.5-73.1); Platelet Count Result 230 k/mm3 (150-375); Red Blood Count 3.78 M/mm3 (4.2-5.4); Red Cell Distribution Width 16.9 % (11.5-14.5); White Blood Count 7.7 K/mm3 (4.5-10.0)
[2024-02-21 20:16] LABS: Alanine Aminotransferase 12 U/L (6-35); Albumin Level 4.2 g/dL (3.5-5.1); Alkaline Phosphatase 122 U/L (38-126); Anion Gap 10 mmol/L (4-12); Aspartate Amino Transferase 28 U/L (14-36); Bilirubin,Total 0.6 mg/dL (0.2-1.3); Blood Urea Nitrogen 32 mg/dL (7-17); Calcium 8.9 mg/dL (8.4-10.2); Carbon Dioxide 29 mmol/L (22-30); Chloride 95 mmol/L (98-107); Estimated CRCL calculation 10 ml/min; Estimated Glomerular Filt Rate 10; Glucose 151 mg/dL (65-110); Potassium 4.7 mmol/L (3.4-5.0); Sodium 134 mmol/L (137-145)
[2024-02-21 20:29] LABS: Troponin I 0.028 ng/mL (0.000-0.034)
--- NOTE | 2024-02-21 20:31 | ED.GENADULT ---
HPI - General Adult General Chief complaint: Abdominal Pain Stated complaint: low BP after dialysis Time Seen by Provider: 02/21/24 19:19 History of Present Illness HPI narrative: This is a 73-year-old female presenting ED with chief complaint of abdominal pain. Patient's abdominal pain has been going on for 2 weeks. It is a sharp pain which she says is across her lower abdomen. It radiates to her back. It comes and goes. It happens for approximately 20 minutes before resolving on its own. She says this happens about 3 times a day. Associated with nausea but no vomiting. Patient has never had pain like this before. She says her pain was improved Gas-X and having large bowel movement. No exacerbating symptoms. Patient denies fevers chills chest pain difficulty breathing or lower extremity edema. Patient was sent by her hassock maker to be evaluated for dissection. Related Data Home Medications Medication Instructions Recorded Confirmed allopurinol 100 mg tablet 100 mg PO DAILY 08/26/20 12/13/21 atorvastatin 40 mg tablet 40 mg PO DAILY 08/26/20 12/13/21 carvedilol 6.25 mg tablet 6.25 mg PO BID 08/26/20 12/13/21 famotidine 20 mg tablet 20 mg PO DAILY 08/26/20 12/13/21 gabapentin 100 mg capsule 100 mg PO DAILY 08/26/20 12/13/21 glipizide 5 mg tablet, extended 5 mg PO DAILY 08/26/20 12/13/21 release 24 hr losartan 50 mg tablet 25 mg PO DAILY 08/26/20 12/13/21 sevelamer carbonate 800 mg tablet 800 mg PO TIDWM 08/26/20 12/13/21 clopidogrel 75 mg tablet (Plavix) 75 mg PO DAILY 12/13/21 12/13/21 Allergies Allergy/AdvReac Type Severity Reaction Status Date / Time No Known Allergies Allergy Verified 12/13/21 15:31 [facility] Past Medical History Medical History Coronary artery disease End-stage renal disease on hemodialysis Essential hypertension Gastroesophageal reflux disease Gout Type 2 diabetes mellitus with peripheral neuropathy Surgical History Surgical History History of coronary artery bypass graft Family History Family History Father Diabetes mellitus Hypertension Heart disease Colon cancer Mother Diabetes mellitus Hypertension Colon cancer Social History Social History Social History: Surrogate decision maker: Grazyna Hansen, daughter. Code status: Full code. Smoking status: Never smoker Alcohol intake: never Substance use: never Substance use type: does not use Additional living arrangements comments: Lives alone in her own home in [place]. Additional occupation/education comments: Retired from [employer]. Spiritual care concerns: No Exam Narrative: APPEARANCE: No apparent distress. Head: atraumatic. EYES: EOMI, NOSE: Atraumatic NECK: Trachea midline RESPIRATORY: No increased rate of breathing CTAB CARDIOVASCULAR: RRR, no peripheral edema, equal pulses, AV fistula in the left upper extremity with palpable thrill ABDOMINAL: Epigastric tenderness without guarding or rebound MUSCULOSKELETAl: No obvious deformities NEURO: Alert. Moving 4/4 extremities SKIN:: Warm, dry. Normal color PSYCHIATRIC: Normal affect Back/Spine/Pelvis: Cervical Spine: No collar present Course Vital Signs Vital signs: Vital Signs Temperature 99.2 F 02/21/24 16:38 Pulse Rate 94 02/21/24 16:38 Respiratory Rate 16 02/21/24 16:38 Blood Pressure 118/70 02/21/24 16:38 Pulse Oximetry 94 02/21/24 16:38 Temperature 98.9 F 02/21/24 20:01 Pulse Rate 81 02/21/24 23:40 Respiratory Rate 17 02/21/24 23:40 Blood Pressure 133/64 02/21/24 23:40 Pulse Oximetry 96 02/21/24 23:40 Oxygen Delivery Room Air 02/21/24 20:01 Medical Decision Making MDM Narrative Medical decision making narrative: -Course: 73-year-old dialysis patie
[2024-02-21] MEDS: ACETAMINOPHEN 500 MG TABLET 1000 MG PO (23:39)
[2024-02-21 23:40] VITALS: BP 133/64; PULSE 81; RESP 17; O2SAT 96
[2024-02-22 02:03] LABS: Troponin I 0.038 ng/mL (0.000-0.034)
[2024-02-22 04:24] VITALS: BP 116/98; PULSE 74; RESP 13; O2SAT 98
--- NOTE | 2024-02-22 13:57 | ECG_ITS ---
SEE SCANNED COPY FOR CONFIRMED REPORT MTDD
== END 2024-02-22 04:38 | disposition home or self-care (01) ==
PROVIDERS: Nurse Practitioner Family; Emergency Provider Emergency Medicine; PCP Internal Medicine
DX: K29.70 Gastritis, unspecified, without bleeding (principal); K80.20 Calculus of gallbladder without cholecystitis without obstruction; N28.89 Other specified disorders of kidney and ureter; R79.89 Other specified abnormal findings of blood chemistry; N18.6 End stage renal disease; I12.0 Hypertensive chronic kidney disease with stage 5 chronic kidney disease or end stage renal disease; E11.22 Type 2 diabetes mellitus with diabetic chronic kidney disease; I25.10 Atherosclerotic heart disease of native coronary artery without angina pectoris; Z99.2 Dependence on renal dialysis; E11.42 Type 2 diabetes mellitus with diabetic polyneuropathy; Z95.1 Presence of aortocoronary bypass graft; Z79.02 Long term (current) use of antithrombotics/antiplatelets; Z79.84 Long term (current) use of oral hypoglycemic drugs; R94.31 Abnormal electrocardiogram [ECG] [EKG]
CPT/HCPCS: 36415; 71275; 74174; 80053; 84484; 85025; 93005; 96374; 99284; A9270; Q9967

== ENCOUNTER 2024-03-12 07:04 | Outpatient (CLI) | payer MEDICARE, SELFPAY ==
--- NOTE | ~2024-03-12 | CT_ITS ---
CT of the Abdomen and Pelvis: Indication: Renal mass Technique: 2.5 mm axial scans were obtained through the abdomen and pelvis prior to and following in travenous administration of 100 cc of Omnipaque 350. Dose reduction technique was used on this scan b y utilizing automated exposure control and iterative reconstruction technique. The dose-length produc t (DLP) was 535.51 mGy-cm. COMPARISON: 02/21/2024, 08/26/2020 Findings: Scans through the lung bases are unremarkable. Cardiomegaly noted. Small gallstones are present. Possible stone in the proximal common bile duct. There is mild intrahep atic biliary dilatation. Gallbladder is distended with possible minimal wall thickening. The spleen, pancreas, and adrenal glands are within normal limits. Kidneys are atrophic bilaterally. There are multiple bilateral renal masses, none of which enhance, therefore most compatible with simp le and hyperdense cysts, including the 4 cm left renal lesion noted on previous exam. There are ather osclerotic calcifications of the aorta. No lymphadenopathy. No bowel obstruction or bowel wall thickening. There is no evidence to suggest acute appendicitis. Si gmoid diverticulosis noted. Diffuse stool suggests constipation. Images through the pelvis were performed. Calcified uterine fibroids are present. Urinary bladder unr emarkable. No ascites. Impression: Multiple bilateral renal masses are present, however none of them demonstrate postcontrast enhancemen t. Therefore these are most compatible with simple and hyperdense cysts. Ultrasound or pre and postco ntrast MR could be considered to further exclude solid mass, as indicated. Cholelithiasis and questionable common bile duct stone. Distended gallbladder with intrahepatic bilia ry dilatation, and possible mild gallbladder wall thickening. Correlate clinically. Consider MRCP as indicated. Consider HIDA scan if there is clinical concern for acute cholecystitis. Constipation. Calcified uterine fibroids. Reviewed, dictated and finalized at location M. Impression: Multiple bilateral renal masses are present, however none of them demonstrate p ostcontrast enhancement. Therefore these are most compatible with simple and hy perdense cysts. Ultrasound or pre and postcontrast MR could be considered to fu rther exclude solid mass, as indicated. Cholelithiasis and questionable common bile duct stone. Distended gallbladder w ith intrahepatic biliary dilatation, and possible mild gallbladder wall thicken ing. Correlate clinically. Consider MRCP as indicated. Consider HIDA scan if th ere is clinical concern for acute cholecystitis. Constipation. Calcified uterine fibroids.
== END 2024-03-12 07:05 | disposition home or self-care (01) ==
PROVIDERS: PCP Internal Medicine; Visit Provider Urology
DX: N28.89 Other specified disorders of kidney and ureter (principal); K80.20 Calculus of gallbladder without cholecystitis without obstruction; K59.00 Constipation, unspecified; D25.9 Leiomyoma of uterus, unspecified
CPT/HCPCS: 74178; Q9967

== ENCOUNTER 2024-10-01 22:03 | Emergency (ER) | payer MEDICARE, SELFPAY ==
[2024-10-01] VITALS (19 sets, daily range): BP systolic 129–140; BP diastolic 59–102; PULSE 87–99; RESP 15–29; TEMP 36.5; O2SAT 90–100
--- NOTE | ~2024-10-01 | CT_ITS ---
CT of the Abdomen and Pelvis: Indication: Abdominal pain Technique: 2.5 mm axial scans were obtained through the abdomen and pelvis following intravenous adm inistration of 100 cc of Omnipaque 350. Dose reduction technique was used on this scan by utilizing a utomated exposure control and iterative reconstruction technique. The dose-length product (DLP) was 3 71.77 mGy-cm. COMPARISON: 03/12/2024 Findings: Scans through the lung bases are unremarkable. Cardiomegaly noted. There is internal stent which appears to traverse the gallbladder to the gastric antrum. There is ext ensive pneumobilia. No other hepatic parenchymal abnormality seen. Common bile duct stent also presen t. The spleen, pancreas, adrenal glands are within normal limits. Bilateral density indeterminate ramez al lesions are present, probably hyperdense cysts, though subtle lesions cannot be excluded. Kidneys themselves are atrophic otherwise. No evidence of aortic aneurysm. No lymphadenopathy. No bowel obstruction or bowel wall thickening. There is no evidence to suggest acute appendicitis. Images through the pelvis were performed. Urinary bladder unremarkable. Small calcified fibroids are present. There is infiltration of presacral fat planes. No ascites. Impression: Common bile duct stent with additional apparent stent traversing from the gallbladder to gastric antr um. Correlate with procedural history. Extensive pneumobilia. Bilateral renal masses which could reflect hyperdense cysts versus solid lesions. Pre and postcontras t CT or MR should be considered to better exclude solid enhancing mass. Nonspecific infiltration of presacral fat planes. Small calcified fibroids. Reviewed, dictated and finalized at [facility]. 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 Correlate with procedural history. Extensive pneumobi eligio. Bilateral renal masses which could reflect hyperdense cysts versus solid lesion s. Pre and postcontrast CT or MR should be considered to better exclude solid e nhancing mass. Nonspecific infiltration of presacral fat planes. Small calcified fibroids.
--- NOTE | ~2024-10-01 | XR_ITS ---
Portable chest x-ray Comparison: 11/30/2022 Clinical History: Shortness of breath Findings: Lungs are clear, without focal consolidation or pleural effusion. Cardiomediastinal silho uette is stable, status post probable CABG. Bones and soft tissues are unremarkable. Impression: Clear lungs. Stable cardiomegaly, status post presumed CABG. Reviewed, dictated and finalized at location . E EXAMINER Impression: Clear lungs. Stable cardiomegaly, status post presumed CABG.
--- NOTE | 2024-10-01 22:16 | ED_ITS ---
HPI - Abdominal Pain General Chief Complaint: Abdominal Pain Stated Complaint: abd pain Time Seen by Provider: 10/01/24 22:05 History of Present Illness HPI narrative: Patient is a 74-year-old female who presents to the emergency department this evening complaining of abdominal pain and 1 episode of coffee-ground emesis. Patient is currently at and recent rehab facility getting stronger per family members. Patient has history of congestive heart failure with an ejection fraction of 15% and currently wearing a LifeVest. Daughter who is present at bedside states that her ejection fraction has improved to 30% and once she reaches 35% she gets to take the life vest off. Patient is currently denying any nausea and has not had any vomiting episodes in the emergency department. Rehab facility was concerned regarding the patient's coffee-ground emesis and patient was brought to our facility for further evaluation. Family members also state the patient has extensive history of gallbladder disease and has had multiple stents and drains placed in the past at [facility]. She cannot undergo cholecystectomy in until she is wearing her LifeVest. Family members are concerned that she might be fluid overloaded since she has not been having the full 3 L removed during her dialysis sessions, they have been removing 2/2 2-1/2 L. Patient is on dual anti-platelet therapy. Patient denies any urinary symptoms including dysuria or hematuria, denies any additional symptoms or co ncerns at this time. Related Data Home Medications Medication Instructions Recorded Confirmed atorvastatin 40 mg tablet 40 mg PO DAILY 08/26/20 09/25/24 aspirin 81 mg chewable tablet 81 mg PO DAILY 09/01/24 09/25/24 gabapentin 100 mg capsule 200 mg PO DAILY 09/01/24 09/25/24 loratadine 10 mg tablet (Claritin) 10 mg PO DAILY 09/01/24 09/25/24 melatonin 10 mg capsule 10 mg PO QHS 09/01/24 09/25/24 metoprolol succinate 25 mg 25 mg PO DAILY 09/01/24 09/25/24 tablet,extended release 24 hr ticagrelor 90 mg tablet 90 mg PO Q12H 09/01/24 09/25/24 ursodiol 200 mg capsule 200 mg PO BID 09/01/24 09/25/24 venlafaxine 37.5 mg tablet 37.5 mg PO DAILY 09/01/24 09/25/24 vitamin B complex and vitamin C 1 cap PO DAILY 09/01/24 09/25/24 no.20-folic acid 1 mg capsule (Triphrocaps) albuterol sulfate 90 mcg/actuation 2 puff inhalation QID PRN SOB 09/26/24 09/26/24 aerosol inhaler benzonatate 100 mg capsule 100 mg PO TID PRN Cough 09/26/24 09/26/24 cholecalciferol (vitamin D3) 50 50 mcg PO DAILY 09/26/24 09/26/24 mcg (2,000 unit) capsule epoetin susan 4,000 unit/mL 4,000 unit IV 3XW 09/26/24 09/26/24 injection solution hydroxyzine HCl 25 mg tablet 25 mg PO HS 09/26/24 09/26/24 inulin 2 gram chewable tablet 2 g PO Q2D 09/26/24 09/26/24 (Fiber Gummies) loperamide 2 mg capsule 2 mg PO QID PRN Diarrhea 09/26/24 09/26/24 midodrine 10 mg tablet 10 mg PO 3XW 09/26/24 09/26/24 trazodone 50 mg tablet 25 mg PO HS 09/26/24 09/26/24 Zyrtec 10/01/24 bacitracin 10/01/24 insulin lispro 10/01/24 Allergies Allergy/AdvReac Type Severity Reaction Status Date / Time No Known Allergies Allergy Verified 10/01/24 22:10 Review of Systems Review of Systems: All systems are reviewed and are negative unless stated otherwise in the HPI. [facility] Past Medical History Medical History Coronary artery disease End-stage renal disease on hemodialysis Essential hypertension Gastroesophageal reflux disease Gout Type 2 diabetes mellitus with peripheral neuropathy Surgical History Surgical History History of coronary artery bypass graft Family History Family History Father Diabetes mellitus Hypertension Heart disease Colon cancer Mother Diabetes mellitus Hypertension Colon cancer Social History Social History Social History: Surrogate decision maker: Grazyna Hansen, daughter. Code status: Full code. Smoking packs per day: 1 Smoking cigarettes per day: 20.0 Smoking status: Former smoker Tobacco type: cigarettes Second hand tobacco smoke exposure: Yes Alcohol intake: former Substance use: never Substance use type: does not use Do You Feel Safe in your Home?: Yes Lack of Transportation: No Lack of Food: Never True Current Housing: I Have Housing Concerned About Future Housing: No Difficulty Paying Gas/Electric Bills: No Difficulty Paying for Meds: No Currently Unemployed: No Education: High School Diploma/GED Difficulty w/ Childcare or Family Care: No Additional living arrangements comments: Lives alone in her own home in [place]. Additional occupation/education comments: Retired from [employer]. Spiritual care concerns: No Exam Narrative: General: Alert, awake, afebrile, in no acute distress. HEENT: PERRL, no rhinorrhea, no post nasal drip, oropharynx clear. Neck: Trachea midline, no JVD, no lymphadenopathy. Cardiovascular: Regular rate and rhythm, no murmurs, rubs or gallops, minimal peripheral pitting edema, wearing life vest. Respiratory: Clear to auscultation bilaterally, no tachypnea, no wheezing, no rhonchi, no rubs, no respiratory distress. Abdomen: Soft, nontender, nondistended, no rebound, no guarding, no peritoneal signs. Musculoskeletal: No joint swelling or deformity, normal muscle tone. Skin: No rashes or petechia, no signs of infection. Psychiatric: Alert and oriented, normal behavior and judgment for situation. Neurological: Alert and oriented to person, place, and time. Follows all commands. No focal deficits, speech is clear and fluent. Course Vital Signs Vital signs: Vital Signs Temperature 97.7 F 10/01/24 22:02 Pulse Rate 92 10/01/24 22:02 Respiratory Rate 16 10/01/24 22:02 Blood Pressure 140/68 10/01/24 22:02 Pulse Oximetry 100 10/01/24 22:02 Oxygen Delivery Room Air 10/01/24 22:02 Temperature 97.7 F 10/01/24 22:02 Pulse Rate 89 10/02/24 03:01 Respiratory Rate 12 10/02/24 03:01 Blood Pressure 133/60 10/02/24 03:01 Pulse Oximetry 91 10/02/24 03:01 Oxygen Delivery Room Air 10/01/24 22:02 MDM - Abdominal Pain MDM Narrative Medical decision making narrative: The patient was evaluated by myself in the emergency department. History is obtained from patient who is an independent historian along with family members present at bedside and physical exam was performed. External medical records were reviewed at this time. IV was established and pertinent tests were ordered. Patient was administered 2 mg of IV morphine for pain and 4 mg IV Zofran for nausea. Laboratory results obtained revealing a BNP greater than 30,000, total bilirubin 2.6, direct bilirubin 0.7, AST 55, alkaline phosphatase 179, lactic acid 3.5 with a repeat 2.3, BUN 34, creatinine 2.6, GFR 18. Patient had dialysis today and her next dialysis session is on Sunday. I did discuss was at bedside obtaining imaging results with IV contrast which patient should tolerate since she will be having her next dialysis session within the next 48 hours. Family members are agreeable to proceed with a CT abdomen pelvis with IV contrast. Imaging studies obtained included CXR which was independently interpreted by me revealing cardiomegaly with no acute cardiopulmonary abnormality and CT angiogram abdomen and pelvis with IV contrast which was independently interpreted by me revealing internalized biliary stents noted with gas extending into the biliary tree and gallbladder findings are favored to be postprocedural in nature consistent with patient's history. At this time, patient's son-in-law Mainor was contacted at [phone] and he was updated regarding patient's blood work and imaging results. I did discuss patient is elevated bilirubin which I infor med him I believe is due to her chronic biliary history. Discussed the elevated proBNP which is consistent with patient's CHF with low ejection fraction. I did inform him that patient does not have any clinical evidence of fluid overload and is currently resting comfortably asleep, saturating 98% on room air. I did inform him that patient is stable to return back to her rehab facility and he is agreeable with this plan. Differential diagnosis considerations include GI bleed, bowel obstruction, cholecystitis, pancreatitis, appendicitis. Comorbidities impacting this visit include history of CHF and biliary disease. I have evaluated and discussed social determinants of health with the patient that could potentially impact subsequent diagnosis and treatment plans. On repeat assessment of the patient, reevaluation revealed that the patient is doing well and is in no acute distress. Patient symptoms have improved since she arrived to our emergency department. Repeat vital signs were all reviewed and noted to be stable. Differential diagnosis and treatment plan were discussed with the patient at bedside. Patient agrees with discussion and after shared medical decision making agrees with discharge. All questions were answered to the patient's satisfaction. Patient will follow up with her primary care physician in 3-5 days. Patient was provided with strict return precautions and instructed to return to the emergency department if any new or worsening symptoms develop. The patient was discharged in stable condition. Lab Data 10/01/24 22:21 10/01/24 22:21 Labs: Lab Results 10/01/24 10/02/24 10/02/24 Range/Units 22:21 02:34 02:35 WBC 12.2 H (4.5-10.0) K/mm3 RBC 4.30 (4.2-5.4) M/mm3 Hgb 11.9 L (12.0-15.0) g/dL Hct 38.3 (37.0-47.0) % MCV 89.1 (80-100) fl MCH 27.7 (26-34) pg MCHC 31.1 L (32-36) g/dl RDW 19.5 H (11.5-14.5) % Plt Count 286 (150-375) k/mm3 MPV 9.5 (7.4-10.4) fl Immature Gran % (Auto) 0.6 H (0-0.5) % Neut % (Auto) 82.2 H (45.5-73.1) % Lymph % (Auto) 7.8 L (18.3-44.2) % Crane % (Auto) 8.9 H (2.6-8.5) % Eos % (Auto) 0.1 (0-4.4) % Baso % (Auto) 0.4 (0.2-1.2) % Lymph # (Auto) 0.95 (0.9-3.2) K/mm3 Crane # (Auto) 1.1 H (0.1-0.6) K/mm3 Eos # (Auto) 0.0 (0-0.3) K/mm3 Baso # (Auto) 0.1 (0.0-0.1) K/mm3 Abs Immat Gran (auto) 0.07 H (0.00-0.031) K/mm3 Absolute Neuts (auto) 10.0 H (1.3-6.7) K/mm3 Absolute Nucleated RBC 0.000 (0.0-0.012) K/mm3 Nucleated RBC % 0.0 (0.0-0.2) % PT 20.1 H (11.1-14.7) Seconds INR 1.7 APTT 33.6 (22.3-36.8) Seconds Sodium 134 L (137-145) mmol/L Potassium 4.5 (3.4-5.0) mmol/L Chloride 90 L (98-107) mmol/L Carbon Dioxide 27 (22-30) mmol/L Anion Gap 17 H (4-12) mmol/L BUN 34 H (7-17) mg/dL Creatinine 2.60 H (0.7-1.0) mg/dL Estim Creat Clear Calc 16 ml/min Estimated GFR 18 L (59 - ) Glucose 225 H (65-110) mg/dL Lactic Acid 3.5 H 2.3 H (0.7-2.0) mmol/L Calcium 9.5 (8.4-10.2) mg/dL Magnesium 1.6 (1.6-2.3) mg/dL Total Bilirubin 2.6 H (0.2-1.3) mg/dL Direct Bilirubin 0.7 H (0-0.3) mg/dL AST 55 H (14-36) U/L ALT 21 (6-35) U/L Alkaline Phosphatase 179 H (38-126) U/L NT-Pro-B Natriuret Pep > 16808 H (19.9-100) pg/mL Total Protein 8.0 (6.3-8.2) g/dL Albumin 3.9 (3.5-5.1) g/dL Lipase 64 (23-300) U/L Discharge Plan Discharge Clinical Impression: Abdominal pain, Nausea & vomiting, Hyperbilirubinemia Patient Disposition: Inpatient Rehab Facility Condition: Improved Instructions: Abdominal Pain (ED) Additional Instructions: Please follow-up with your family doctor within the next 3-5 days. Return to the emergency department if any new or worsening symptoms develop. Prescriptions: No Action venlafaxine 37.5 mg tablet 37.5 mg PO DAILY aspirin 81 mg tablet,chewable 81 mg PO DAILY melatonin 10 mg capsule 10 mg PO QHS metoprolol succinate 25 mg tablet extended release 24 hr 25 mg PO DAILY ticagrelor 90 mg tablet 90 mg PO Q12H Triphrocaps 1 mg capsule 1 cap PO DAILY ursodiol 200 mg capsule 200 mg PO BID loratadine [Claritin] 10 mg tablet 10 mg PO DAILY atorvastatin 40 mg tablet 40 mg PO DAILY gabapentin 100 mg capsule 200 mg PO DAILY Zyrtec bacitracin insulin lispro epoetin susan 4,000 unit/mL Solution 4,000 unit IV 3XW loperamide 2 mg Capsule 2 mg PO QID PRN (Reason: Diarrhea) trazodone 50 mg Tablet 25 mg PO HS benzonatate 100 mg Capsule 100 mg PO TID PRN (Reason: Cough) hydroxyzine HCl 25 mg Tablet 25 mg PO HS albuterol sulfate 90 mcg/actuation Hfa Aerosol Inhaler 2 puff INHALATION QID PRN (Reason: SOB) Rx Instructions: OR COUGH midodrine 10 mg Tablet 10 mg PO 3XW Rx Instructions: ON DIALYSIS DAYS (Mo, We, Fr) cholecalciferol (vitamin D3) 50 mcg (2,000 unit) Capsule 50 mcg PO DAILY Fiber Gummies 2 gram Tablet,Chewable 2 g PO Q2D Follow-up/Referrals: Eriberto,MD Clayton [Primary Care Provider] - 3 Days Time of Disposition: 04:08
[2024-10-01 22:27] LABS: Basophils Absolute Auto 0.1 K/mm3 (0.0-0.1); Basophils Percent Auto 0.4 % (0.2-1.2); Eosinophils Percent Auto 0.1 % (0-4.4); Hematocrit 38.3 % (37.0-47.0); Hemoglobin 11.9 g/dL (12.0-15.0); Immature Granulocyte Absolute 0.07 K/mm3 (0.00-0.031); Immature Granulocyte Percent A 0.6 % (0-0.5); Lymphocytes Absolute Auto 0.95 K/mm3 (0.9-3.2); Lymphocytes Percent Auto 7.8 % (18.3-44.2); Mean Corpuscular HGB Conc 31.1 g/dl (32-36); Mean Corpuscular Hemoglobin 27.7 pg (26-34); Mean Corpuscular Volume 89.1 fl (80-100); Mean Platelet Volume 9.5 fl (7.4-10.4); Monocytes Absolute Auto 1.1 K/mm3 (0.1-0.6); Monocytes Percent Auto 8.9 % (2.6-8.5); Neutrophils Percent Auto 82.2 % (45.5-73.1); Platelet Count Result 286 k/mm3 (150-375); Red Cell Distribution Width 19.5 % (11.5-14.5); White Blood Count 12.2 K/mm3 (4.5-10.0)
--- NOTE | 2024-10-01 22:35 | PC.NURSE ---
patient states that she does not make urine. patient is a dialysis patient.
[2024-10-01 22:37] LABS: Lactic Acid Reflex 3.5 mmol/L (0.7-2.0)
[2024-10-01 22:38] LABS: Alanine Aminotransferase 21 U/L (6-35); Albumin Level 3.9 g/dL (3.5-5.1); Alkaline Phosphatase 179 U/L (38-126); Anion Gap 17 mmol/L (4-12); Aspartate Amino Transferase 55 U/L (14-36); Bilirubin Direct 0.7 mg/dL (0-0.3); Bilirubin,Total 2.6 mg/dL (0.2-1.3); Blood Urea Nitrogen 34 mg/dL (7-17); Calcium 9.5 mg/dL (8.4-10.2); Carbon Dioxide 27 mmol/L (22-30); Chloride 90 mmol/L (98-107); Estimated CRCL calculation 16 ml/min; Estimated Glomerular Filt Rate 18; Glucose 225 mg/dL (65-110); INR 1.7; Lipase 64 U/L (23-300); Magnesium 1.6 mg/dL (1.6-2.3); Potassium 4.5 mmol/L (3.4-5.0); Prothrombin Time 20.1 Seconds (11.1-14.7); Sodium 134 mmol/L (137-145)
[2024-10-01 22:39] LABS: Partial Thromboplastin Time 33.6 Seconds (22.3-36.8)
[2024-10-02] VITALS (35 sets, daily range): BP systolic 104–146; BP diastolic 47–86; PULSE 78–106; RESP 12–25; TEMP 36.6; O2SAT 88–100
--- NOTE | 2024-10-02 00:23 | PC.NURSE ---
pt son in law gave this RN his phone number to call him. pt name is Mainor phone number is [phone]
[2024-10-02 01:25] LABS: Reflex Lactic Acid Yes or No Add Lactic
[2024-10-02 02:52] LABS: Lactic Acid 2.3 mmol/L (0.7-2.0)
[2024-10-02] MEDS: ONDANSETRON INJ 4 MG/2 ML VIAL IV PUSH (02:56)
[2024-10-02] MEDS: MORPHINE SULFATE (*CRX) 4 MG/ML INJ 2 MG IV PUSH (02:56)
[2024-10-02 03:00] LABS: NT Pro B Type Natriuretic Pept > 30000 pg/mL (19.9-100)
--- NOTE | 2024-10-02 03:10 | PC.NURSE ---
pt placed 2lnc after morphine given oxygen 88% RA
== END 2024-10-02 05:30 ==
PROVIDERS: Emergency Provider Emergency Medicine; PCP Internal Medicine
DX: R10.9 Unspecified abdominal pain (principal); R11.2 Nausea with vomiting, unspecified; E80.6 Other disorders of bilirubin metabolism; I13.2 Hypertensive heart and chronic kidney disease with heart failure and with stage 5 chronic kidney disease, or end stage renal disease; I50.9 Heart failure, unspecified; I12.0 Hypertensive chronic kidney disease with stage 5 chronic kidney disease or end stage renal disease; E11.22 Type 2 diabetes mellitus with diabetic chronic kidney disease; N18.6 End stage renal disease; Z99.2 Dependence on renal dialysis; E11.42 Type 2 diabetes mellitus with diabetic polyneuropathy; I25.10 Atherosclerotic heart disease of native coronary artery without angina pectoris; Z79.01 Long term (current) use of anticoagulants; K21.9 Gastro-esophageal reflux disease without esophagitis; Z79.4 Long term (current) use of insulin; Z79.82 Long term (current) use of aspirin; Z79.899 Other long term (current) drug therapy
CPT/HCPCS: 36415; 71045; 74174; 80053; 82248; 83605; 83690; 83735; 83880; 85025; 85610; 85730; 96374; 96375; 99284; J2270; J2405; Q9967